=== PATIENT | female | born 1945 | race Caucasian/White ===

== ENCOUNTER → 2017-02-07 | Outpatient (CLI) | payer OTHER ==
[~2017-02-07] MED LIST: CALCTAB5 PO; CHOL200010 PO; METF500T PO; MULT-506 PO; SIME80CH PO
--- NOTE | 2017-02-08 07:57 | MAMMOGRAPHY REPORT ---
BILATERAL DIGITAL SCREENING MAMMOGRAM TOMOSYNTHESIS WITH CAD: 02/07/2017 CLINICAL HISTORY: Routine screening. Patient has no complaints. TECHNIQUE: Breast tomosynthesis in addition to standard 2D mammography was performed. Current study was also evaluated with a Computer Aided Detection (CAD) system. COMPARISON: Comparison is made to exams dated: 01/28/2016 mammogram, 12/23/2014 mammogram, 12/17/2013 ma mmogram, 12/14/2012 mammogram, 11/29/2011 mammogram, and 11/23/2010 mammogram - [facility]. BREAST COMPOSITION: The tissue of both breasts is heterogeneously dense, which may obscure small mas ses. FINDINGS: There is a stable metallic biopsy marker in the left upper outer quadrant. Round microcal cifications in the right lateral breast are stable. There are also 2 stable clusters of amorphous mi crocalcifications in the central right breast, unchanged dating back to at least 2010, therefore like ly benign. No new suspicious mass, architectural distortion or cluster of new, suspicious microcalci fications is seen bilaterally. IMPRESSION: ACR BI-RADS CATEGORY 1: NEGATIVE There is no mammographic evidence of malignancy. A 1 year screening mammogram is recommended. The pa tient will receive written notification of the results. Approximately 10% of breast cancers are not detected with mammography. A negative mammographic report should not delay biopsy if a clinically suggestive mass is present. Silke Hunt M.D. ay/:02/07/2017 16:51:10 [place] Erector Helper: Carly GREGORY(Steffi)(Delmi), [facility] letter sent: Normal 1/2 BI-RADS Code: ACR BI-RADS Category 1: Negative
== END | disposition home or self-care (01) ==
LOC: C.MAMM 13:22
PROVIDERS: ATTEND Family Medicine
DX: Z12.31 Encounter for screening mammogram for malignant neoplasm of breast (principal)

== ENCOUNTER → 2017-05-06 | Outpatient (CLI) | payer OTHER ==
[~2017-05-06] VITALS: Ht 172.7 cm; Wt 72.4 kg
[2017-05-06 13:17] VITALS: BP 110/74; PULSE 83; Ht 172.7 cm; Wt 72.4 kg
== END | disposition home or self-care (01) ==
LOC: C.NEUR 13:05
PROVIDERS: ATTEND Internal Medicine Pulmonary Disease
DX: G47.33 Obstructive sleep apnea (adult) (pediatric) (principal); J30.89 Other allergic rhinitis

== ENCOUNTER → 2017-09-13 | Outpatient (CLI) | payer OTHER ==
--- NOTE | 2017-09-13 12:35 | DIAGNOSTIC IMAGING REPORT ---
L RIBS UNILATERAL WITH PA CHEST CLINICAL HISTORY: Left-sided chest pain following injury. COMPARISON STUDY: No previous studies for comparison. FINDINGS: There is no pneumothorax or pleural effusion. Lungs are clear. Cardiac size is normal. Mediastinal contours are normal. No acute left rib fractures are identified. IMPRESSION: No pneumothorax. No acute left rib fractures identified. Electronically signed by: Cali Dennis M.D. 09/13/2017 12:34 PM Dictated Date/Time: 09/13/2017 12:32 PM
== END | disposition home or self-care (01) ==
LOC: C.RADBC 10:59
PROVIDERS: ATTEND Family Medicine
DX: R07.9 Chest pain, unspecified (principal)

== ENCOUNTER → 2018-02-13 | Outpatient (CLI) | payer OTHER ==
--- NOTE | 2018-02-14 15:20 | MAMMOGRAPHY REPORT ---
BILATERAL DIGITAL SCREENING MAMMOGRAM TOMOSYNTHESIS WITH CAD: 02/13/2018 CLINICAL HISTORY: Routine screening. Patient has no complaints. TECHNIQUE: Breast tomosynthesis in addition to standard 2D mammography was performed. Current study w as also evaluated with a Computer Aided Detection (CAD) system. COMPARISON: Comparison is made to exams dated: 02/07/2017 mammogram, 01/28/2016 mammogram, 07/16/2015 m ammogram, 01/01/2015 mammogram, 12/23/2014 mammogram, and 12/17/2013 mammogram - [facility]. BREAST COMPOSITION: The tissue of both breasts is heterogeneously dense, which may obscure small mass es. FINDINGS: There is an oval partially circumscribed and partially obscured 9 mm mass within the left lower inner quadrant, best seen on the tomosynthesis images, for which targeted ultrasound and possible addition al spot compression tomosynthesis views are recommended for further evaluation. The remainder of both breasts are stable compared to prior exams, without suspicious masses, calcific ations, or areas of architectural distortion noted. Bilateral benign-appearing calcifications are no t significantly changed. A biopsy clip is again noted within the left upper outer quadrant. IMPRESSION: ACR BI-RADS CATEGORY 0: INCOMPLETE EVALUATION: NEED ADDITIONAL IMAGING EVALUATION Left breast mass, for which additional imaging evaluation is recommended. The patient will be called to schedule an appointment. Some breast cancers are not detected with mammography. A negative mammographic report should not angeline y biopsy if a clinically suggestive mass is present. Melissa Solorzano M.D. ah/:02/13/2018 14:39:34 Riv[employer] Hole Machine Operator: RT Mikhail(Steffi)(M), [facility] letter sent: Addl Imaging 0 BI-RADS Code: ACR BI-RADS Category 0: Incomplete Evaluation: Need Additional Imaging Evaluation
== END | disposition home or self-care (01) ==
LOC: C.MAMM 13:57
PROVIDERS: ATTEND Family Medicine
DX: Z12.31 Encounter for screening mammogram for malignant neoplasm of breast (principal); N63.24 Unspecified lump in the left breast, lower inner quadrant

== ENCOUNTER 2023-04-28 08:51 | Observation (INO) ==
--- NOTE | 2023-04-26 09:36 | Anesthesiology Consultation ---
Date of Service April 26, 2023 Assessment & Plan (1) Encounter for pre-operative examination: Chart Review Chart Review: Acceptable Risk for Surgery (pending DOS EKG) and Patient NOT seen in Pre Admission Testing - Check EKG stat DOS (not done preoperatively) - Check BSG AM DOS -Infectious Disease screening: Per PAT nursing assessment on 04/26/23. No known infectious disease contacts in past 10 days or current infectious disease symptoms. No recent travel outside the country. History Surgery Operation Date: 04/28/23 10:30 Proposed Procedures p Endobronchial Ultrasound - Jaren Amaral MD Height/Weight Height: 5 ft 8 in Weight: 71.668 kg Allergies Allergy/AdvReac Type Severity Reaction Status Date / Time iodine Allergy Mild RASH Verified 04/26/23 08:52 pneumococcal vaccine Allergy Rash Verified 04/26/23 08:52 Dust Allergy Mild SINUS Uncoded 04/26/23 08:52 SYMPTOMS Medications Home Medications Medication Instructions Recorded Confirmed Last Taken metformin 500 mg tablet 500 mg PO TID 04/22/19 04/26/23 Unknown (Glucophage) multivitamin 1 tab PO QAM 04/22/19 04/26/23 Unknown turmeric 1 tab PO HS 07/28/21 04/26/23 Unknown cholecalciferol (vitamin D3) 125 125 mcg PO QAM 04/26/23 04/26/23 Unknown mcg (5,000 unit) tablet (Vitamin D3) simethicone 125 mg capsule 125 mg PO QAM 04/26/23 04/26/23 Unknown Past Medical History Medical History Chronic cough Ductal carcinoma in situ (DCIS) of left breast dx 04/2023 Hx of multiple concussions most recent ~2015, due to falls from horse; no residual effects from the concussions Slow to wake up after anesthesia Allergic rhinitis due to dust Type 2 diabetes mellitus Obstructive sleep apnea cpap Osteopenia Past Family History Family History Mother Bladder cancer Brother Lung cancer Son Asthma Past Surgical History Surgical History Hx of bilateral cataract extraction Hx of colonoscopy History of oral surgery History of hysterectomy removed 1 ovary History of dilatation and curettage Social History Smoking Status: Never smoker Do You Dip or Chew Tobacco: No Hx Alcohol Use: Yes Alcohol type: wine alcohol intake frequency: 0-2 drinks per day Hx Substance Use: No substance use type: does not use Lab Results Anesthesia Preop Results Results Anesthesia Widget: WBC 6.78 K/ul (4.8-10.8) 04/25/23 Hgb 12.8 g/dl (12.0-16.0) 04/25/23 Hct 38.3 % (37.0-47.0) 04/25/23 Plt 453 K/uL (130-400) H 04/25/23 Na 140 mmol/L (136-145) 04/25/23 K 3.9 mmol/L (3.5-5.1) 04/25/23 Cl 104 mmol/L (98-107) 04/25/23 CO2 29 mmol/L (21-32) 04/25/23 BUN 16 mg/dl (6-23) 04/25/23 Creat 0.90 mg/dl (0.6-1.2) 04/25/23 Glucose Level 94 mg/dl (70-99(Fasting)) 04/25/23 PT 10.3 Seconds (9.0-12.0) 04/25/23 INR 0.9 (0.9-1.1) 04/25/23 HA1c 5.9 % (4.5-5.6) H 03/31/23 Testing Chest X-Ray Date: 04/11/23 FINDINGS: Interval development of a 7.7 cm round masslike opacity within the left lower lobe posteriorly. No pneumothorax. No pleural effusions. Left basilar linear densities favor subsegmental atelectasis. The heart is normal in size. No evidence for pulmonary edema. No acute fractures identified. IMPRESSION: 1. Interval development of a 7.7 cm round masslike opacity within the left lower lobe. This is concerning for a malignancy. Follow-up dedicated chest CT is recommended for confirmation. Pulmonary Function Test Date: 04/25/23 Normal spirometry per interpretation Other Testing Chest CT 04/18/23= Left lower lung airspace opacity measures approximately 61 mm. Findings may represent infectious/inflammatory process however are concerning for a mass lesion with postobstructive atelectasis. Short-term follow-up or bronchoscopic biopsy can be performed. There is a 11 mm left hilar node, otherwise no suspicious lymphadenopathy or nodules are seen.
[~2023-04-28 08:51] MED LIST changes: -CALCTAB5 PO; -CHOL200010 PO; +LR 15ML/HR IV SCH; -METF500T PO; -MULT-506 PO; -SIME80CH PO
[2023-04-28] MEDS ORDERED: PROPOFOL IV EMULSION 10 MG/ML 20 ML VIAL IV ONE ×6 (09:07→12:38)
[2023-04-28] MEDS ORDERED: ROCURONIUM BROMIDE 10 MG/ML 5 ML VIAL IV ONE (09:07)
[2023-04-28] MEDS ORDERED: ONDANSETRON INJ 2 MG/ML 2 ML VIAL ONE (09:07)
[2023-04-28] MEDS ORDERED: LIDOCAINE 2% 2 ML VIAL/AMP(20MG/ML) INFIL ONE (09:07)
[2023-04-28] MEDS ORDERED: fentaNYL citrate PF 100 MCG/2 ML VIAL ONE ×2 (09:07→12:23)
--- NOTE | 2023-04-28 09:56 | History & Physical Bridge Note ---
Date of Service April 28, 2023 History & Physical Bridge Note I have examined the patient, reviewed the History & Physical and in the interval since the performance of the History & Physical I have noted the following changes of clinical significance: no changes noted
[2023-04-28] MEDS ORDERED: fentaNYL citrate PF 100 MCG/2 ML VIAL IV PRN (10:01)
[2023-04-28] MEDS ORDERED: ATROPINE SULFATE 0.1 MG/ML 10ML SYR IV PRN (10:01)
[2023-04-28] MEDS ORDERED: ePHEDrine sulfate 50 MG/ML AMP IV PRN (10:01)
[2023-04-28] MEDS ORDERED: ONDANSETRON INJ 2 MG/ML 2 ML VIAL IV PRN (10:01)
[2023-04-28] MEDS ORDERED: MIDAZOLAM HCL 1 MG/ML 2ML VIAL ONE (10:19)
[2023-04-28] MEDS ORDERED: SUGAMMADEX SODIUM 200 MG/2 ML VIAL IV ONE (10:56)
[2023-04-28] MEDS ORDERED: SUCCINYLCHOLINE CHLORIDE 20 MG/ML 10 ML VIAL IV ONE (11:27)
[2023-04-28] MEDS ORDERED: TRANEXAMIC ACID / 0.7% NACL 1000MG/100ML BAG IV ONE (11:27)
[2023-04-28] MEDS ORDERED: TXA 10% Non-IV Routes 100 MG/ML VIAL NEB ONE (12:37)
--- NOTE | 2023-04-28 13:08 | Electrocardiogram Report ---
Test Reason : Blood Pressure : / mmHG Vent. Rate : 077 BPM Atrial Rate : 077 BPM P-R Int : 160 ms QRS Dur : 128 ms QT Int : 416 ms P-R-T Axes : 056 -48 001 degrees QTc Int : 470 ms Normal sinus rhythm Right bundle branch block Left anterior fascicular block Bifascicular block Voltage criteria for left ventricular hypertrophy Abnormal ECG When compared with ECG of 08-OCT-2004 08:06, Premature supraventricular complexes are no longer Present Right bundle branch block has replaced Incomplete right bundle branch block Confirmed by Pascual Payan ([id number]) on 04/28/2023 1:08:42 PM Referred By: Jaren Amaral Confirmed By:Pascual Payan
--- NOTE | 2023-04-28 13:23 | Procedure Note ---
Procedure Note: Bronchoscopy Procedure PREOPERATIVE DIAGNOSIS: Left lower lobe mass POSTOPERATIVE DIAGNOSIS: Left lower lobe mass PROCEDURE PERFORMED: Flexible fiberoptic bronchoscopy with bronchial washings of the left lower lobe, transbronchial biopsies of the left lower lobe, cytology brushings, blood clot clot retrieval and cryoprobe. COMPLICATIONS: None. INDICATION: Evaluate left lower lobe lung mass PROCEDURE: Informed consent was obtained from the patient prior to the procedure. All questions were answered to the best of my ability. The patient was intubated by the general anesthesia staff and sedation, hemodynamics and ventilation status is monitored by anesthesia staff throughout the procedure. Timeout was performed directly prior to the procedure. A diagnostic bronchoscope was introduced via an endotracheal tube adapter through the endotracheal tube. The trachea and julieta appeared normal. Julieta was sharp. I performed an inspection of the bilateral tracheobronchial tree. No obvious mass lesions or significant secretions were encountered. We then wedged in the superior segment of the left lower lobe and performed washings of this region with 120 mL of saline. Approximately 30 mL was aspirated back. I then performed cytologic brushings of the left lower lobe region with the use of fluoroscopy to guide our brush. Minimal bleeding was encountered after the brushes were deployed. I then performed 2 transbronchial biopsies of the superior segment of the left lower lobe with the guidance of fluoroscopy. After the second biopsy, significant bleeding was encountered. Cold saline was instilled into the superior segment of the left lower lobe along with 1 mL of diluted epinephrine to control the bleeding. Visualization of the airway was maintained with the bronchoscope throughout the procedure, but it was difficult to identify the individual segments at this time due to the significan t amount of bleeding encountered. I used fluoroscopy to help guide the bronchoscope back into the left lower lobe region. Copious amounts of cold saline was used to further control bleeding. Eventually hemostasis was achieved and there was a large clot burden noted emanating from the superior segment of the left lower lobe. Clot was then seen extending from this region of the left mainstem bronchus, over the julieta and into the right lower lobe and right upper lobe region. At this point, I asked for assistance from my colleague, Dr. Kelly who was kindly available to assist in this case. A cryo probe was utilized to remove the clot sequentially from the right lower lobe, julieta and left lower lobe. An alligator forcep was also utilized for clot retrieval. The airways were then flushed clean with saline and fluid along with retained blood clots were aspirated back. Inspection bronchoscopy was performed after retrieval and minimal clot was seen. The bronchial did appear inflamed post procedure. Ultimately, the patient was successfully extubated and postprocedure chest x-ray demonstrated vascular congestion without evidence of pneumothorax. CBC was obtained during the procedure due to the bleeding encountered and the results suggested a mild drop in hemoglobin to 11.1 from a CBC checked on 04/25/2023 when her hemoglobin was 12.8. As noted above, the patient remains hemodynamically stable. Impression: - Left lower lobe mass biopsied with forceps and brushings. Washings performed of the left lower lobe as well and sent for cytologic examination. - Bleeding encountered during the procedure with eventual hemostasis achieved. Approximately 75 mL of blood loss was seen. Numerous tools were deployed via the bronchoscopy for blood clot retrieval after hemostasis was achieved including alligator forceps, cryoprobe and a basket. We were able to retrieve the vast majority of clot burden from the airways. -Patient is currently in the PACU recovery area with adequate hemodynamics and oxygenation. [facility] [place] Procedure Codes (Charges) Pulmonary/Thoracic Procedure 1: Pulmonary and Thoracic: 63997 Dx bronchoscopy/brush Procedure 2: Pulmonary and Thoracic: 79770 Bronchoscopy w/ transbronchial lung bx Procedure 3: Pulmonary and Thoracic: 08656 Dx bronchoscopy/wash Procedure 4: Pulmonary and Thoracic: 28626 Bronchoscopy, clear airways
--- NOTE | 2023-04-28 13:46 | XRay Report ---
XR chest 1V portable CLINICAL HISTORY: s/p bronch with bx LLL TECHNIQUE: Single frontal radiograph of the chest was obtained. Comparison: Comparison is made to chest radiograph 04/08/2023 FINDINGS: No lines and tubes are seen. The cardiomediastinal silhouette is normal. Ill-defined retrocardiac opa city is in the left lower lung. Pulmonary vascular prominence is suggested. No evidence of pleural ef fusion or pneumothorax. IMPRESSION: 1. Expected postbiopsy appearance without evidence of pneumothorax. 2. There is questionable pulmonary vascular congestion. ACT 112: Negative or not required by law. Electronically signed by: Kimani Laughlin M.D. 04/28/2023 1:45 PM
[2023-04-28 13:56] LABS: Basophils # (auto) 0.03 K/uL (0.00-0.20); Basophils % (auto) 0.7 %; Eosinophils # (auto) 0.12 K/uL (0.00-0.50); Eosinophils % (auto) 2.9 %; Hematocrit (blood only) 30.5 % (37.0-47.0); Hemoglobin 11.1 g/dl (12.0-16.0); Immature Granulocytes # (auto) 0.01 K/uL (0.01-0.20); Immature Granulocytes % (auto) 0.2 %; Lymphocytes # (auto) 1.41 K/uL (1.20-3.40); Lymphocytes % (auto) 34.3 %; Mean Corpuscular Hemoglobin 32.4 pg (25.0-34.0); Mean Corpuscular Hgb Conc 36.4 g/dL (32.0-36.0); Mean Corpuscular Volume 88.9 fL (80.0-100.0); Mean Platelet Volume 10.3 fL (9.4-12.4); Monocytes # (auto) 0.36 K/uL (0.11-0.59); Monocytes % (auto) 8.8 %; Neutrophils # (auto) 2.18 K/uL (1.40-6.50); Neutrophils % (auto) 53.1 %; Platelet Count 296 K/uL (130-400); RDW Coefficient of Variation 13.4 % (11.5-14.5); RDW Standard Deviation 43.8 fL (36.4-46.3); Red Blood Count 3.43 M/uL (4.20-5.40); White Blood Count 4.11 K/ul (4.8-10.8)
[2023-04-28] MEDS ORDERED: ALBUTEROL 0.083% NEBU SOLN 3 ML VIAL NEB STA (14:32)
[2023-04-28] MEDS ORDERED: ALBUTEROL 0.083% NEBU SOLN 3 ML VIAL ONE (14:35)
[2023-04-28 14:40] LABS: Lymphocyte Body Fluid Man 4 %; Neutrophil Body Fluid Man 71 %
[2023-04-28 14:47] LABS: Fluid Mono/Macrophage 25 %
[2023-04-28 14:48] LABS: Basophils # (auto) 0.03 K/uL (0.00-0.20); Basophils % (auto) 0.3 %; Eosinophils # (auto) 0.07 K/uL (0.00-0.50); Eosinophils % (auto) 0.7 %; Hemoglobin 11.8 g/dl (12.0-16.0); Immature Granulocytes # (auto) 0.02 K/uL (0.01-0.20); Immature Granulocytes % (auto) 0.2 %; Lymphocytes % (auto) 14.1 %; Mean Corpuscular Hgb Conc 34.7 g/dL (32.0-36.0); Mean Corpuscular Volume 86.5 fL (80.0-100.0); Mean Platelet Volume 8.9 fL (9.4-12.4); Monocytes # (auto) 0.34 K/uL (0.11-0.59); Monocytes % (auto) 3.4 %; Neutrophils # (auto) 8.09 K/uL (1.40-6.50); Neutrophils % (auto) 81.3 %; Platelet Count 358 K/uL (130-400); RDW Coefficient of Variation 13.4 % (11.5-14.5); RDW Standard Deviation 42.4 fL (36.4-46.3); Red Blood Count 3.93 M/uL (4.20-5.40); White Blood Count 9.95 K/ul (4.8-10.8)
--- NOTE | 2023-04-28 15:36 | XRay Report ---
XR chest 1V portable HISTORY: 77 years-old Female hypoxia, persistent cough post bronch acute hypoxia COMPARISON: Chest radiograph of same date 1:31 PM, chest CT 04/18/2023 TECHNIQUE: AP view the chest FINDINGS: Retrocardiac masslike area of consolidation redemonstrated. Mild pulmonary vascular congestion. No pn eumothorax, pleural effusion or overt pulmonary edema. Degenerative changes of the shoulders and spin e. IMPRESSION: 1. Cardiomegaly with pulmonary vascular congestion. 2. No postprocedural pneumothorax identified. 3. Retrocardiac masslike area of consolidation redemonstrated, better seen on the comparison chest CT . ACT 112: Negative or not required by law. The above report was generated using voice recognition software. It may contain grammatical, syntax o r spelling errors. Electronically signed by: Rohith Benitez M.D. 04/28/2023 3:35 PM
--- NOTE | 2023-04-28 15:55 | Communication Note ---
Date of Service: April 28, 2023 I reevaluated the patient and looked at her repeat chest x-ray and CBC. Her hemoglobin is stable. Her chest x-ray reveals vascular congestion with no p ostprocedural pneumothorax identified. The patient is having frequent bouts of dry cough and frequent desaturations to the low 80s on room air. She is able to quickly improve her oxygenation to the mid to high 90s with deep inspiration, but has a persistent cough. We will ask that she be admitted to the hospitalist service for monitoring overnight. Please place the patient on supplemental humidified oxygen. We will start IV Solu-Medrol 60 mg twice daily and albuterol nebs every 6 hours for airway inflammation. We will also start the patient on Unasyn. Cough is likely secondary to bronchoscopy and possible retained clot in the bronchial airways. Majority of the clot in her airways was removed procedurally, but potentially there is remaining clot in the distal airways.
--- NOTE | 2023-04-28 16:19 | Anesthesiology Progress Note ---
Date of Service April 28, 2023 Anesthesia Post Procedure Vital Signs Vital Signs: Temp Pulse Pulse Resp BP Pulse Ox O2 Del Method 04/28/23 15:30 76 16 109/63 92 Room Air 04/28/23 15:00 80 20 121/56 L 94 Room Air 04/28/23 14:45 70 22 117/67 100 Nebulizer 04/28/23 14:30 68 16 115/61 97 Room Air 04/28/23 14:15 68 12 119/53 L 98 Room Air 04/28/23 14:05 72 12 112/80 98 Room Air 04/28/23 13:55 36.3 C L 88 18 136/97 94 Room Air 04/28/23 13:45 64 18 113/67 94 Oxymask 04/28/23 13:35 80 18 118/69 98 Oxymask 04/28/23 13:26 Oxymask 04/28/23 13:25 66 19 124/67 99 Oxymask 04/28/23 13:15 36 C L 63 19 120/73 98 Oxymask 04/28/23 09:16 36.9 C 81 20 145/92 H 96 Room Air O2 Flow Rate 04/28/23 15:30 04/28/23 15:00 04/28/23 14:45 10 04/28/23 14:30 04/28/23 14:15 04/28/23 14:05 04/28/23 13:55 04/28/23 13:45 2 04/28/23 13:35 4 04/28/23 13:26 04/28/23 13:25 6 04/28/23 13:15 6 04/28/23 09:16 Transfer of Care Handoff Completed per policy Notes Mental Status: alert / awake / arousable and participated in evaluation Patient Amnestic to Procedure: Yes Nausea / Vomiting: adequately controlled Pain: adequately controlled Airway Patency, RR, SpO2: stable & adequate BP & HR: stable & adequate Hydration State: stable & adequate Anesthetic Complications: no major complications apparent and Pt Satisfied with anesthetic care
--- NOTE | 2023-04-28 16:46 | History & Physical Report ---
Date of Service April 28, 2023 Assessment & Plan (1) Lung mass: Plan: Left lower lobe lung mass s/p bronchoscopy and biopsy complicated by hemorrhage Approximately 75 cc of blood loss multiple tools required for clot retrieval and hemostasis. No hypoxia, normotensive, regular heart rate while in PACU at time of admission evaluation Admitted to PCU Solu-Medrol twice daily 60 mg, guaifenesin with codeine, DuoNebs continued Biopsy results pending and will require outpatient follow-up Pulmonology consulted H&H every 8 hours, morning labs ordered Hemodynamically stable at time of reassessment Do not use pharmacologic DVT prophylaxis at this (2) Status post bronchoscopy: (3) Obstructive sleep apnea: Plan: Do not use CPAP tonight due to hemorrhage/clot. (4) Type 2 diabetes mellitus: Plan: Type II DM Basal bolus SSI ordered, pharmacy glycemic consult for DM with steroid use Minimal insulin requirements, A1c less than 6% on metformin monotherapy at home Goal BSG 1 [id number] Plan DVT prophylaxis: SCDs Disposition: PCU CODE STATUS: Full code Diet: Clear, n.p.o. at midnight per pulm History of Present Illness Primary Care Provider: Dora Andrade Roxana is a 77-year-old female with a past medical history of type 2 diabetes mellitus, MARIA R, DCIS of the left breast and a 6.5 cm lung mass noted on CT who presented for bronchoscopy and biopsy. She had significant postprocedural bleeding and clot following biopsy has been recommended for admission and overnight monitoring for stability. Hemoglobin rechecked x3 initially downtrended by a point and now uptrending. SPO2 generally greater than 90% at room air with intermittent desats to the 80s before spontaneously improving. Case reviewed with pulmonology who are consulted, patient is recommended for methylprednisolone 60 mg twice daily, nebulizers, and antitussive overnight. Hemoglobin has been trended every 8 hours. Patient has history of well- controlled diabetes on metformin monotherapy, due to concurrent steroid use we will add additional sliding scale Roxana is seen at the bedside in the PACU. She reports she actually feels well and for the first time in 2 hours she is not coughing. She does not feel short of breath, but notes that she tries to take a deep breath will suddenly have a spurt of coughing. Denies chest pain, chest pressure denies fever, chills, sweats. Denies lightheadedness/dizziness. She is concerned about being on steroids due to her diabetes, but notes her diabetes is generally extremely well controlled with an A1c of less than 6%. She reports prior to the work-up for the masses in her breast cancer she was completely healthy, very active, exercises routinely and had no medical problems. No blood thinners. 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 Medical History: Reviewed Medications: Reviewed Surgical History: Reviewed Family history: Reviewed Allergies: Reviewed Social History: No tobacco/etoh Code Status: Full Allergies Allergy/AdvReac Type Severity Reaction Status Date / Time house dust Allergy Mild sinus Verified 04/28/23 14:35 symptoms iodine Allergy Mild RASH Verified 04/26/23 14:17 pneumococcal vaccine Allergy Rash Verified 04/26/23 14:17 Home Medications Medication Instructions Recorded Confirmed Type metformin 500 mg tablet 500 mg PO TID 04/22/19 04/28/23 History (Glucophage) multivitamin 1 tab PO QAM 04/22/19 04/28/23 History turmeric 1 tab PO HS 07/28/21 04/28/23 History cholecalciferol (vitamin D3) 125 125 mcg PO QAM 04/26/23 04/28/23 History mcg (5,000 unit) tablet (Vitamin D3) prednisone 20 mg tablet 40 mg (2 x 20 mg) PO DAILY 5 days 04/28/23 Rx #10 tabs Past Med/Surg History Medical History (Updated 04/28/23 @ 17:27 by Jc Burroughs MD) Chronic cough Ductal carcinoma in situ (DCIS) of left breast dx 04/2023 Hx of multiple concussions most recent ~2015, due to falls from horse; no residual effects from the concussions Slow to wake up after anesthesia Allergic rhinitis due to dust Type 2 diabetes mellitus Obstructive sleep apnea cpap Osteopenia Surgical History (Updated 04/28/23 @ 17:27 by Jc Burroughs MD) Hx of bilateral cataract extraction Hx of colonoscopy History of oral surgery History of hysterectomy removed 1 ovary History of dilatation and curettage Family History Mother Bladder cancer Brother Lung cancer Son Asthma Social History Smoking Status: Never smoker Second Hand Exposure: Yes (hx); Do You Dip or Chew Tobacco: No; Tobacco Cessation Education Requested by Patient: No Hx Alcohol Use: Yes Alcohol type: wine Hx Substance Use: No Preferred Language: Portuguese Communication Ability: Effective Chronometer Assembler And Adjuster Required: No Beliefs That Will Affect Care: None marital status: / Current Living Situation: Alone Current Living Situation Comment: lives at [facility] Other Information That Helps Us Care for You: No Feels Safe at Home: Yes Safety Concerns: Feels Safe At This Time Assistive Devices: CPAP, Glasses and Hearing Aid - Bilateral Assistive Devices Comment: glasses prn Physical Exam Physical Exam: General: A&Ox3. NAD. Cooperative. HEENT: Atraumatic, normocephalic. Pulm: CTAB A&P. -wheezes, -rales, -rhonchi. Deep inspiration limited by induction of cough. Symmetrical chest rise. No increased work of breathing. No respiratory distress. Cardiac: RRR, -mrg. Radial pulses intact and symmetrical. Abdominal: Nontender, nondistended, soft. BS present. Results & Data Results & Data Vital Signs (Past 12 Hours) Vital Signs Temp Pulse Pulse Resp BP Pulse Ox O2 Del Method 04/28/23 15:30 76 16 109/63 92 Room Air 04/28/23 15:00 80 20 121/56 L 94 Room Air 04/28/23 14:45 70 22 117/67 100 Nebulizer 04/28/23 14:30 68 16 115/61 97 Room Air 04/28/23 14:15 68 12 119/53 L 98 Room Air 04/28/23 14:05 72 12 112/80 98 Room Air 04/28/23 13:55 36.3 C L 88 18 136/97 94 Room Air 04/28/23 13:45 64 18 113/67 94 Oxymask 04/28/23 13:35 80 18 118/69 98 Oxymask 04/28/23 13:26 Oxymask 04/28/23 13:25 66 19 124/67 99 Oxymask 04/28/23 13:15 36 C L 63 19 120/73 98 Oxymask 04/28/23 09:16 36.9 C 81 20 145/92 H 96 Room Air O2 Flow Rate 04/28/23 15:30 04/28/23 15:00 04/28/23 14:45 10 04/28/23 14:30 04/28/23 14:15 04/28/23 14:05 04/28/23 13:55 04/28/23 13:45 2 04/28/23 13:35 4 04/28/23 13:26 04/28/23 13:25 6 04/28/23 13:15 6 04/28/23 09:16 Code Status & VTE Plan VTE Prophylaxis Plan VTE Prophylaxis will be ordered: Yes PG Care Time/CCT Total # of Minutes Spent Total Time Spent with Patient: Total time spent is greater than 50% in coordination of care (as documented) at patient's floor/unit and/or counseling patient: Coding Level of Care Code 19577 INT INP/OBS CARE 3/75MIN Diagnoses Lung mass R91.8 Status post bronchoscopy Z98.890 Obstructive sleep apnea G47.33 Type 2 diabetes mellitus E11.9
[2023-04-28] MEDS ORDERED: ALBUT/IPRATROP 3MG/0.5MG NEB 3 ML VIAL NEB PRN (17:07)
[2023-04-28] MEDS: ALBUTEROL 0.083% NEBU SOLN 3 ML VIAL NEB SCH (19:54)
[2023-04-28] MEDS ORDERED: GLUCOSE 10 TAB/TUBE PO PRN (20:22)
[2023-04-28] MEDS ORDERED: DEXTROSE 50% 50 ML SYRINGE IV PRN (20:22)
[2023-04-28] MEDS ORDERED: CARBOHYDRATES FOR HYPOGLYCEMIA PO PRN (20:22)
[2023-04-28] MEDS ORDERED: GLUCOSE 40% GEL 15 GM TUBE PO PRN (20:22)
[2023-04-28] MEDS ORDERED: GLUCAGON FOR INJ 1 MG VIAL SQ PRN (20:22)
[2023-04-28] MEDS ORDERED: NON-FORMULARY MEDICATION (Turmeric 1 TAB) PO SCH (21:00)
[2023-04-28] MEDS: methylPREDNISolone 60 MG in SYRINGE 0 ML IV SCH (21:10)
[2023-04-28] MEDS: INSULIN ASPART PER UNIT CHARGE SC SCH (21:10)
[2023-04-29] MEDS: ALBUTEROL 0.083% NEBU SOLN 3 ML VIAL NEB SCH ×4 (00:14→07:29)
[2023-04-29 00:50] LABS: Hematocrit (blood only) 34.8 % (37.0-47.0); Hemoglobin 11.6 g/dl (12.0-16.0)
[2023-04-29 06:35] LABS: Basophils # (auto) 0.01 K/uL (0.00-0.20); Basophils % (auto) 0.1 %; Hematocrit (blood only) 32.9 % (37.0-47.0); Hemoglobin 11.1 g/dl (12.0-16.0); Immature Granulocytes # (auto) 0.04 K/uL (0.01-0.20); Immature Granulocytes % (auto) 0.3 %; Lymphocytes # (auto) 1.02 K/uL (1.20-3.40); Lymphocytes % (auto) 8.6 %; Mean Corpuscular Hemoglobin 29.8 pg (25.0-34.0); Mean Corpuscular Hgb Conc 33.7 g/dL (32.0-36.0); Mean Corpuscular Volume 88.4 fL (80.0-100.0); Mean Platelet Volume 9.2 fL (9.4-12.4); Monocytes # (auto) 0.48 K/uL (0.11-0.59); Monocytes % (auto) 4.1 %; Neutrophils # (auto) 10.25 K/uL (1.40-6.50); Neutrophils % (auto) 86.9 %; Platelet Count 360 K/uL (130-400); RDW Coefficient of Variation 13.7 % (11.5-14.5); RDW Standard Deviation 44.4 fL (36.4-46.3); Red Blood Count 3.72 M/uL (4.20-5.40)
[2023-04-29 06:37] LABS: BUN Creatinine Ratio 18.2 (10-20); Calcium 9.1 mg/dl (8.6-10.3); Creatinine Clr Calc Pharmacy 86.4 ml/min; Est GFR (African American) 104.9 ml/min; Est GFR (Non-African American) 90.5 ml/min; Potassium 4.2 mmol/L (3.5-5.1)
--- NOTE | 2023-04-29 07:41 | Hospitalist Progress Note ---
Date of Service April 29, 2023 Assessment & Plan (1) Lung mass: Plan: Left lower lobe lung mass s/p bronchoscopy and biopsy complicated by hemorrhage 04/28/23 post procedure developed hypoxia and unremitting cough clots retrieved in bronchoscopy Solu-Medrol twice daily 60 mg, guaifenesin with codeine, DuoNebs continued -hgb will be stable Do not use pharmacologic DVT prophylaxis at this (2) Obstructive sleep apnea: Plan: Do not use CPAP tonight due to hemorrhage/clot. (3) Type 2 diabetes mellitus: Plan: Type II DM Basal bolus SSI ordered, pharmacy glycemic consult for DM with steroid use Minimal insulin requirements, A1c less than 6% on metformin monotherapy at home Goal BSG 1 [id number] Plan DVT prophylaxis: SCDs CODE STATUS: Full code Diet: Clear, n.p.o. at midnight per pulm Admission and Anticipated Discharge Date Admission Date: April 28, 2023 Results & Data Results & Data Vital Signs (Past 12 Hours) Vital Signs Temp Pulse Pulse Resp BP Pulse Ox O2 Del Method 04/29/23 07:32 87 04/29/23 07:29 79 18 98 Nasal Cannula 04/29/23 07:19 98.8 F 70 18 109/65 97 Nasal Cannula 04/29/23 00:27 91 H 18 96 Nasal Cannula 04/28/23 22:00 94 H 04/28/23 21:42 97.7 F 94 H 16 110/60 95 Nasal Cannula 04/28/23 19:54 104 H 18 96 Nasal Cannula O2 Flow Rate 04/29/23 07:32 04/29/23 07:29 2 04/29/23 07:19 1.5 04/29/23 00:27 2 04/28/23 22:00 04/28/23 21:42 2 04/28/23 19:54 2 PG Care Time/CCT Total # of Minutes Spent Total Time Spent with Patient: Total time spent is greater than 50% in coordination of care (as documented) at patient's floor/unit and/or counseling patient: Coding Diagnoses Lung mass R91.8 Obstructive sleep apnea G47.33 Type 2 diabetes mellitus E11.9
--- NOTE | 2023-04-29 08:35 | XRay Report ---
XR chest 2V PA/lateral HISTORY: 77 years-old Female post bronch acute shortness of breath COMPARISON: 04/28/2023, 04/18/2023 TECHNIQUE: PA and lateral views of the chest FINDINGS: Cardiac silhouette is enlarged. Improved pulmonary vascular congestion. No pneumothorax. Mild linear left basilar atelectasis. Persistent masslike area of consolidation within the left lower lobe. No pl eural effusion. Degenerative changes of the shoulders and spine. IMPRESSION: Persistent masslike area of consolidation within the left lower lobe. ACT 112: Negative or not required by law. The above report was generated using voice recognition software. It may contain grammatical, syntax o r spelling errors. Electronically signed by: Rohith Benitez M.D. 04/29/2023 8:34 AM
[2023-04-29] MEDS ORDERED: MULTIVITAMIN TAB PO SCH (09:00)
[2023-04-29] MEDS ORDERED: CHOLECALCIFEROL 5,000 UNITS 125 MCG TAB PO SCH (09:00)
[2023-04-29] MEDS: INSULIN ASPART PER UNIT CHARGE SC SCH (09:11)
[2023-04-29] MEDS: methylPREDNISolone 60 MG in SYRINGE 0 ML IV SCH (09:14)
--- NOTE | 2023-04-29 09:31 | Pulmonary Consultation ---
Date of Consultation April 29, 2023 Assessment & Plan (1) Lung mass: (2) Status post bronchoscopy: (3) Obstructive sleep apnea: Plan She has done very well post bronchoscopy and is stable for discharge at this time. I communicated this with the patient and the hospitalist service. She is okay to restart her CPAP today. She was encouraged to go to the ER should she develop any severe shortness of breath, hemoptysis, chest pain or high-grade fever. Chest x-ray today does not reveal any evidence of pneumothorax. Inflammatory changes appear improved. Continue with an additional 4 days of prednisone at a dose of 40 mg daily. Patient will not require supplemental oxygen on discharge. My office will contact her with the biopsy results once available. We discussed the next steps will depend on her biopsy results from the left lower lobe. Unfortunately, I did reiterate to her that we were only able to obtain 2 transbronchial biopsies due to the bleeding encountered during bronchoscopy. She is aware that she may need to undergo a CT-guided biopsy if these results are unrevealing. 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 I performed a bronchoscopy and during the procedure we encountered significant bleeding with clot formation. Ultimately, she was successfully extubated after the procedure and was admitted for observation overnight. Her oxygen saturations have improved significantly. Her cough is also improved. She denies any hemoptysis or chest pain. She has been able to ambulate this morning without any desaturations on room air. She was tolerating a diet and very eager to go home. She does cough occasionally upon deep inspiration. Her hemoglobin has remained stable. Allergies Allergy/AdvReac Type Severity Reaction Status Date / Time house dust Allergy Mild sinus Verified 04/28/23 14:35 symptoms iodine Allergy Mild RASH Verified 04/26/23 14:17 pneumococcal vaccine Allergy Rash Verified 04/26/23 14:17 Home Medications Medication Instructions Recorded Confirmed Type metformin 500 mg tablet 500 mg PO TID 04/22/19 04/28/23 History (Glucophage) multivitamin 1 tab PO QAM 04/22/19 04/28/23 History turmeric 1 tab PO HS 07/28/21 04/28/23 History cholecalciferol (vitamin D3) 125 125 mcg PO QAM 04/26/23 04/28/23 History mcg (5,000 unit) tablet (Vitamin D3) prednisone 20 mg tablet 40 mg (2 x 20 mg) PO DAILY 5 days 04/28/23 Rx #10 tabs Patient History Medical History (Updated 04/28/23 @ 17:27 by Jc Burroughs MD) Chronic cough Ductal carcinoma in situ (DCIS) of left breast dx 04/2023 Hx of multiple concussions most recent ~2015, due to falls from horse; no residual effects from the concussions Slow to wake up after anesthesia Allergic rhinitis due to dust Type 2 diabetes mellitus Obstructive sleep apnea cpap Osteopenia Surgical History (Updated 04/28/23 @ 17:27 by Jc Burroughs MD) Hx of bilateral cataract extraction Hx of colonoscopy History of oral surgery History of hysterectomy removed 1 ovary History of dilatation and curettage Family History Mother Bladder cancer Brother Lung cancer Son Asthma Social History Smoking Status: Never smoker Second Hand Exposure: Yes (hx); Do You Dip or Chew Tobacco: No; Tobacco Cessation Education Requested by Patient: No Hx Alcohol Use: Yes Alcohol type: wine Hx Substance Use: No Preferred Language: Yi Communication Ability: Effective Denture Finisher Required: No Beliefs That Will Affect Care: None marital status: / Current Living Situation: Alone Current Living Situation Comment: lives at [facility] Other Information That Helps Us Care for You: No Feels Safe at Home: Yes Safety Concerns: Feels Safe At This Time Assistive Devices: CPAP, Glasses and Hearing Aid - Bilateral Assistive Devices Comment: glasses prn Review of Systems Review of Systems: All systems reviewed & are unremarkable except as noted in HPI & below Physical Exam Physical Exam: VITAL SIGNS - Vital signs and nursing notes were reviewed. GENERAL - 77-year-old female appearing her stated age who is in no acute distress. Communicates well with provider and answers questions appropriately. SKIN - Without rashes or lesions. NOSE - Midline and without cyanosis. MOUTH/OROPHARYNX - Without perioral cyanosis. NECK - Neck with FROM. Supple to palpation. LUNGS - Chest wall evaluation demonstrates normal chest wall A:P diameter. Auscultation reveals diminished breath sounds at the LEFT sided lung base. No wheezes, rales, or rhonchi appreciated. CARDIAC - RRR with S1/S2. No murmur, rubs, or gallops appreciated. EXTREMITIES - Nail clubbing not present. No peripheral cyanosis. No pretibial edema present. +3/5 radial palpated throughout. PSYCH - A&Ox3 and cooperates fully with examiner. Pt is very pleasant and interacts well with examiner. Results & Data Results & Data Vital Signs (Past 12 Hours) Vital Signs Temp Pulse Pulse Resp BP Pulse Ox O2 Del Method 04/29/23 07:32 87 04/29/23 07:29 79 18 98 Nasal Cannula 04/29/23 07:19 37.1 C 70 18 109/65 97 Nasal Cannula 04/29/23 00:27 91 H 18 96 Nasal Cannula 04/28/23 22:00 94 H 04/28/23 21:42 36.5 C 94 H 16 110/60 95 Nasal Cannula O2 Flow Rate 04/29/23 07:32 04/29/23 07:29 2 04/29/23 07:19 1.5 04/29/23 00:27 2 04/28/23 22:00 04/28/23 21:42 2 PG Care Time/CCT Total # of Minutes Spent Total Time Spent with Patient: Total time spent is greater than 50% in coordination of care (as documented) at patient's floor/unit and/or counseling patient: Coding Level of Care Code 38417 INT INP/OBS CARE 2/55MIN Diagnoses Lung mass R91.8 Status post bronchoscopy Z98.890 Obstructive sleep apnea G47.33
--- NOTE | 2023-04-29 18:36 | Discharge Summary ---
Date of Service April 29, 2023 Admission HPI Per Admitting Provider Roxana is a 77-year-old female with a past medical history of type 2 diabetes mellitus, MARIA R, DCIS of the left breast and a 6.5 cm lung mass noted on CT who presented for bronchoscopy and biopsy. She had significant postprocedural bleeding and clot following biopsy has been recommended for admission and overnight monitoring for stability. Hemoglobin rechecked x3 initially downtrended by a point and now uptrending. SPO2 generally greater than 90% at room air with intermittent desats to the 80s before spontaneously improving. Case reviewed with pulmonology who are consulted, patient is recommended for methylprednisolone 60 mg twice daily, nebulizers, and antitussive overnight. Hemoglobin has been trended every 8 hours. Patient has history of well- controlled diabetes on metformin monotherapy, due to concurrent steroid use we will add additional sliding scale Roxana is seen at the bedside in the PACU. She reports she actually feels well and for the first time in 2 hours she is not coughing. She does not feel short of breath, but notes that she tries to take a deep breath will suddenly have a spurt of coughing. Denies chest pain, chest pressure denies fever, chills, sweats. Denies lightheadedness/dizziness. She is concerned about being on steroids due to her diabetes, but notes her diabetes is generally extremely well controlled with an A1c of less than 6%. She reports prior to the work-up for the masses in her breast cancer she was completely healthy, very active, exercises routinely and had no medical problems. No blood thinners. No asa/plavix group captain Medical History: Reviewed Medications: Reviewed Surgical History: Reviewed Family history: Reviewed Allergies: Reviewed Social History: No tobacco/etoh Code Status: Full Principal Diagnosis hypoxia post procedure left lower lung mass s/p bronchoscopy and biospy post biopsy bleeding Discharge Exam awake alert and pleasant. Nonproductive cough. She said no hemoptysis since has been in the unit. Card exam is regular lung exam shows changes to the left lower lobe with some rhonchorous breath sounds but definitely has breath sounds in all lung diaz Discharge Data Allergies Allergy/AdvReac Type Severity Reaction Status Date / Time house dust Allergy Mild sinus Verified 04/28/23 14:35 symptoms iodine Allergy Mild RASH Verified 04/26/23 14:17 pneumococcal vaccine Allergy Rash Verified 04/26/23 14:17 Procedures Performed Operation Date: 04/28/23 10:30 Actual Procedures p Bronchoscopy with Bronchoalveolar lavage, Bronchial brushings, Biopsy, Endobronchial cryoprobe with Transbronchial biopsy, transbronchial needle aspiration, retrieval of blood clot(Not Applicable) - Jaren Amaral MD Ordered Studies 04/28/23 [place] bronchoscopy Routine Hospital Course (1) Lung mass: Left lower lobe lung mass s/p bronchoscopy and biopsy complicated by hemorrhage 04/28/23 post procedure developed hypoxia and unremitting cough, hypoxia has resolved cough persists and nonproductive clots retrieved in bronchoscopy Solu-Medrol twice daily 60 mg, discharged on oral prednisone therapy.guaifenesin with codeine, And Tessalon Perles -hgb has been stable Did not use pharmacologic DVT prophylaxis at this (2) Obstructive sleep apnea: Do not use CPAP tonight due to hemorrhage/clot. (3) Type 2 diabetes mellitus: Type II DM patient will resume to home management which includes metformin and carbohydrate conservative diet Plan CODE STATUS: Full code tolerated diet before discharge Total Time Total Time Spent Total Time Spent (In Minutes): it required greater than 30 minutes to prepare this patient for discharge Discharge Plan Discharge Items Patient Disposition: Home - Self-Care Reason For Visit: SEVERE COUGH AND HYPOXIA Discharge Diagnosis: Mass of left lower lobe Activity: Per Instructions section Lifting: Gradually increase as tolerated Sexual Activity: When tolerated Exercise/Sports: Rest today Non-emergency contact: Primary Care Provider and Engine Turner Call non-emergency contact if: your symptoms worsen, your pain is unusual for you and your temperature is above 101 Follow-up/Referrals: Dora Andrade [Primary Care Provider] - Diet: Regular Addtl Attending Provider Instructions: I performed a biopsy of the left lower lobe masslike region 04/28/23 As discussed, we did encounter bleeding during your procedure and we were adequately able to control that bleeding during the procedure. You may notice some scant amount of blood when you cough over the next 2 to 3 days. If this becomes more pronounced and severe, please go to the ER immediately. I am going to prescribe you prednisone for 5 days in order to help reduce the inflammation in your lungs post biopsy. Additionally, if you start developing chest pain, shortness of or high-grade fever above 101, please go to the ER. We should hopefully have the results of the biopsy in the next 1-3 business days. Pending Studies at Discharge: Yes (Biopsies and washings of the left lower lobe lung mass) Stand-Alone Forms: My [facility] Medications and DC Order Prescriptions: New prednisone 20 mg tablet 40 mg PO DAILY 5 Days Qty: 10 0RF Rx Instructions: Take 2 pills daily at same time for 5 days benzonatate 100 mg capsule 100 mg PO TID PRN (Reason: cough) Qty: 30 0RF codeine-guaifenesin 10-100 mg/5 mL liquid 5 ml PO Q6H PRN (Reason: allergy symptoms) Qty: 120 0RF Rx Instructions: to [address] [place] Continued turmeric 1 tab PO HS metformin [Glucophage] 500 mg tablet 500 mg PO TID multivitamin tablet 1 tab PO QAM cholecalciferol (vitamin D3) [Vitamin D3] 125 mcg (5,000 unit) Tablet 125 mcg PO QAM Patient Comments: dose varies by which bottle she buys Discharge Orders: Discharge Order (Routine); Ordered 04/29/23 Ordered By: Quinton Dior/Other Patient Handouts: Endoscopy Chest Lung Dx, Flexible Bronchoscopy Admission Data Admit Date/Time: 04/28/23 16:38 Attending Provider: Quinton Church Admit Provider: Jc Burroughs Primary Care Provider: Dora Andrade Other Interventions: Discharge Summary Assessment (RN) Last Done: 04/29/23 11:35 Coding Level of Care Code 96032 INP/OBS DISCH >30 MIN Diagnoses Lung mass R91.8 Obstructive sleep apnea G47.33 Type 2 diabetes mellitus E11.9
--- NOTE | 2023-05-03 06:01 | Coding Query ---
PATHOLOGY To promote full compliance with coding requirements relating to patient care, physician participation is requested in all cases of director of gift planning uncertainty. Please assist us with the question(s) below: Please review the Pathology report and please document any relevant diagnosis(es) below. Thank you . ROSE MARIE Ramachandran [facility] Diagnosis(es): Diagnosis of lung mass remains unclear at this time. More tissue sampling and PET imaging will be required. ADARSHD
== END 2023-04-29 12:31 | disposition home or self-care (01) ==
LOC: ASU 08:51 → 2E 16:38 → SUATTDRO 16:38 → INTOOBSV 16:38

== ENCOUNTER 2024-04-10 08:19 | Inpatient (IN) ==
--- NOTE | 2024-04-05 08:56 | Anesthesiology Consultation ---
Date of Service April 05, 2024 Assessment & Plan (1) Encounter for pre-operative examination: - Check BSG DOS - Infectious disease screening: Per assessment on 04/05/24, No known recent infectious disease contacts. Patient had new onset of rhinorrhea/congestion 04/04/24 evening. Patient states chronic cough at baseline. Denies other infectious-related symptoms. Covid PCR test 04/05/24 ([place]) came back negative. Patient advised to contact PAT/surgeon if symptoms worsening/not at baseline prior to surgery. Chart Review Chart Review: Acceptable Risk for Surgery (pending evaluation DOS) and Patient NOT seen in Pre Admission Testing History Surgery Operation Date: 04/10/24 12:00 Proposed Procedures p Robotic Navigational Bronchoscopy - Jaren Amaral MD s Endobronchial Ultrasound - Jaren Amaral MD Height/Weight Height: 5 ft 8 in Weight: 72.575 kg Allergies Allergy/AdvReac Type Severity Reaction Status Date / Time house dust Allergy Mild Sinus Verified 04/05/24 11:28 symptoms iodine Allergy Mild Rash Verified 04/05/24 11:28 pneumococcal vaccine Allergy Unknown Rash Verified 04/05/24 08:05 Medications Home Medications Medication Instructions Recorded Confirmed Last Taken multivitamin 1 tab PO QAM 04/22/19 04/05/24 06/17/23 turmeric 1 tab PO HS 07/28/21 04/05/24 06/03/23 cholecalciferol (vitamin D3) 125 125 mcg PO QAM 04/26/23 04/05/24 06/17/23 mcg (5,000 unit) tablet (Vitamin D3) simethicone 62.5 mg oral strips 2 strip PO BID PRN Abdominal 06/01/23 04/05/24 06/23/23 (Gas-X) Discomfort metformin 1,000 mg tablet 1,500 mg PO BID 12/05/23 04/05/24 Unknown Past Medical History Medical History Adenocarcinoma of lung Dx 05/2023 Allergic rhinitis Bifascicular block Chronic anemia Chronic cough Diabetes mellitus, type 2 Ductal carcinoma in situ (DCIS) of left breast Dx 04/2023 History of skin cancer Nose Hx of multiple concussions Most recent ~2015, r/t falls from horse No residual effects from the concussions per patient Multiple pulmonary nodules determined by computed tomography of lung Nocturnal hypoxemia Per records Obstructive sleep apnea CPAP Osteopenia Per records Past Family History Family History Mother Bladder cancer Brother Lung cancer Son Mcginnis sarcoma, Onset Age: 8 Osteosarcoma, Onset Age: 16 Grandmother (Maternal) Cancer Sister H/O thyroidectomy Father Diabetes Past Surgical History Surgical History History of bronchoscopy 04/2023 History of dilatation and curettage History of hysterectomy removed 1 ovary History of lung biopsy History of oral surgery Hx of bilateral cataract extraction Hx of colonoscopy Port-A-Cath in place (06/24/23) Left Breast Lumpectomy, Left [place] Lmyph Node Biopsy, Insertion Access Right Internal Jugular Vein Port with Fluoroscopy Slow to wake up after anesthesia Social History Smoking Status: Never smoker Do You Dip or Chew Tobacco: No Hx Alcohol Use: Yes Alcohol type: wine and hard liquor alcohol intake frequency: 0-2 drinks per day Hx Substance Use: No substance use type: does not use Lab Results Anesthesia Preop Results Results Anesthesia Widget: WBC 7.61 K/ul (4.8-10.8) 04/03/24 Hgb 11.4 g/dl (12.0-16.0) L 04/03/24 Hct 34.7 % (37.0-47.0) L 04/03/24 Plt 596 K/uL (130-400) H 04/03/24 Na 140 mmol/L (136-145) 03/13/24 K 3.9 mmol/L (3.5-5.1) 03/13/24 Cl 103 mmol/L (98-107) 03/13/24 CO2 29 mmol/L (21-32) 03/13/24 BUN 20 mg/dl (6-23) 03/13/24 Creat 0.87 mg/dl (0.6-1.2) 03/13/24 Glucose Level 72 mg/dl (70-99(Fasting)) 03/13/24 PT 10.2 Seconds (9.0-12.0) 04/03/24 INR 0.9 (0.9-1.1) 04/03/24 COVID-19 PCR NEGATIVE (Negative) 10/17/24 Testing Electrocardiogram Date: 04/28/23 NSR, rate 77 bpm. RBBB. LAFB. Bifascicular block. Voltage criteria for LVH. RBBB has replaced incomplete RBBB compared to 10/08/2004 EKG. EKG was faxed to PCP for continuity of care 06/08/23 per previous anesthesia consultation; patient underwent GA 06/09/23 and 06/24/23 at [facility] without issues. Per previous anesthesia consults, cases/EKG reviewed with anesthesiologists Dr. Prieto/Dr. Brasher and deemed okay to proceed with surgery without further comment/cardiac testing/cardiac evaluation. Other Testing Chest CT Date: 03/26/24 IMPRESSION: 1. There is postsurgical change from left lower lobe resection. 2. There are numerous (greater than 20) irregular pulmonary nodules/mass-like opacities scattered throughout both lungs as above. Although some of these could potentially be on an infectious/inflammatory basis, the appearance is much more suggestive of multifocal pulmonary metastatic disease. The largest focus of masslike consolidation in the right upper lobe is similar in appearance to the l eft lower lobe lesion seen on 04/18/2023. At a minimum, short-term radiographic follow-up will be required. 3. There is a mildly enlarged left supraclavicular node, as well as prominent mediastinal nodes. These are pathologically indeterminate but suspicious. 4. Trace pleural fluid is seen in the left lung base.
--- NOTE | 2024-04-10 09:30 | Pulmonary Consultation ---
Date of Consultation April 10, 2024 Assessment & Plan (1) Multiple pulmonary nodules determined by computed tomography of lung: Plan Her latest CT chest 03/26/2024 reveals numerous greater than 20 irregular pulmonary nodules and a masslike opacity in the right upper lobe. Radiology felt that some of these may be inflammatory and others may be more evidence of multifocal pulmonary metastatic disease.. There was also mildly enlarged left supraclavicular lymph node and prominent mediastinal lymph nodes. These may be manifestations of metastatic disease versus inflammation related to Depo. I did discuss robotic navigational bronchoscopy with the patient and she consented to proceed with bronchoscopy with tissue sampling. This was also discussed with her oncologist who is in agreement. History of Present Illness Reason for Consultation: Multiple enlarging lung nodules Attending Physician: Jaren Amaral MD History of Present Illness 78-year-old female with a history of stage IIIa lung cancer status post robotic left lower lobectomy and lymphadenectomy who is presenting today for an elective robotic bronchoscopy given the enlarging bilateral lung nodules. She does endorse an increased cough similar to the cough that she had prior to her initial diagnosis of lung cancer. She has undergone neoadjuvant immunotherapy and chemo therapy. She had an R0 surgical resection in [place]. She is currently maintained on Opdivo. 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 She then received radiation therapy. Allergies Allergy/AdvReac Type Severity Reaction Status Date / Time house dust Allergy Mild Sinus Verified 04/10/24 08:49 symptoms iodine Allergy Mild Rash Verified 04/10/24 08:49 pneumococcal vaccine Allergy Unknown Rash Verified 04/10/24 08:49 Home Medications Medication Instructions Recorded Confirmed Type multivitamin 1 tab PO QAM 04/22/19 04/10/24 History turmeric 1 tab PO HS 07/28/21 04/10/24 History cholecalciferol (vitamin D3) 125 125 mcg PO QAM 04/26/23 04/10/24 History mcg (5,000 unit) tablet (Vitamin D3) simethicone 62.5 mg oral strips 2 strip PO BID PRN Abdominal 06/01/23 04/10/24 History (Gas-X) Discomfort metformin 1,000 mg tablet 1,500 mg PO BID 12/05/23 04/10/24 History cetirizine 10 mg capsule 10 mg PO DAILY 04/10/24 04/10/24 History Patient History Medical History Adenocarcinoma of lung Dx 05/2023 Allergic rhinitis Bifascicular block Chronic anemia Chronic cough Diabetes mellitus, type 2 Ductal carcinoma in situ (DCIS) of left breast Dx 04/2023 History of skin cancer Nose Hx of multiple concussions Most recent ~2015, r/t falls from horse No residual effects from the concussions per patient Multiple pulmonary nodules determined by computed tomography of lung Nocturnal hypoxemia Per records Obstructive sleep apnea CPAP Osteopenia Per records Surgical History History of bronchoscopy 04/2023 History of dilatation and curettage History of hysterectomy removed 1 ovary History of lung biopsy History of oral surgery Hx of bilateral cataract extraction Hx of colonoscopy Port-A-Cath in place (06/24/23) Left Breast Lumpectomy, Left [place] Lmyph Node Biopsy, Insertion Access Right Internal Jugular Vein Port with Fluoroscopy Slow to wake up after anesthesia Family History Mother Bladder cancer Brother Lung cancer Son Mcginnis sarcoma, Onset Age: 8 Osteosarcoma, Onset Age: 16 Grandmother (Maternal) Cancer Sister H/O thyroidectomy Father Diabetes Social History Smoking Status: Never smoker Second Hand Exposure: No; Do You Dip or Chew Tobacco: No; Tobacco Cessation Education Requested by Patient: No Hx Alcohol Use: Yes Alcohol type: wine and hard liquor Hx Substance Use: No Preferred Language: Romanian Communication Ability: Effective 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 Patient is in no apparent distress. Patient is well-developed. Eyes: Pupils are equal round and reactive to light. Conjunctivae are normal. Anicteric sclera. Ears nose, mouth and throat: No perioral cyanosis. Neck: Trachea is midline. Visual inspection is normal. Respiratory: Clear to auscultation bilaterally. No use of accessory muscles. No significant clubbing noted. Cardiovascular: Regular rate and rhythm. No murmurs. No edema. Gastrointestinal: Normal bowel sounds, soft, nontender and nondistended. No hepatosplenomegaly noted. Musculoskeletal: No cyanosis. Patient is able to move all extremities. Strength is 5 out of 5 in the upper and lower extremities. Skin: No rashes, warm dry and intact. Neurologic: No obvious focal neurological deficits seen. Psychiatric: Alert and oriented x3 with a euthymic affect. Results & Data Results & Data Vital Signs (Past 12 Hours) Vital Signs Temp Pulse Resp BP Pulse Ox O2 Del Method 04/10/24 08:51 Room Air, CPAP 04/10/24 08:51 36.8 C 87 18 130/75 96 Room Air, CPAP PG Care Time/CCT Total # of Minutes Spent Total Time Spent with Patient: Total time spent is greater than 50% in coordination of care (as documented) at patient's floor/unit and/or counseling patient: Coding Level of Care Code 46617 IN/OBS CONSULT LVL 3,45M Diagnoses Multiple pulmonary nodules determined by computed tomography of lung R91.8
--- NOTE | 2024-04-10 09:40 | History & Physical Bridge Note ---
Date of Service April 10, 2024 History & Physical Bridge Note I have examined the patient, reviewed the History & Physical and in the interval since the performance of the History & Physical I have noted the following changes of clinical significance: no changes noted
[2024-04-10] MEDS ORDERED: ePHEDrine sulfate 50 MG/ML AMP IV PRN (10:27)
[2024-04-10] MEDS ORDERED: ONDANSETRON INJ 2 MG/ML 2 ML VIAL IV PRN (10:27)
[2024-04-10] MEDS ORDERED: ATROPINE SULFATE 0.1 MG/ML 10ML SYR IV PRN (10:27)
[2024-04-10] MEDS ORDERED: fentaNYL citrate PF 100 MCG/2 ML VIAL IV PRN (10:27)
[2024-04-10] MEDS ORDERED: fentaNYL citrate PF 100 MCG/2 ML VIAL ONE (10:37)
[2024-04-10] MEDS ORDERED: SUGAMMADEX SODIUM 200 MG/2 ML VIAL IV ONE (12:12)
--- NOTE | 2024-04-10 12:44 | XRay Report ---
SUPINE PORTABLE AP CHEST RADIOGRAPH CLINICAL HISTORY: Post bronchoscopy. COMPARISON STUDY: Chest radiograph June 24, 2023. Chest CT March 26, 2024. FINDINGS: Tip of endotracheal tube is 3.2 cm above the julieta. Tip of right internal jugular Infuse-a -Port is within the distal SVC. Right perihilar mass-like opacity is noted. Numerous additional pulmo nary nodules are present. Blunting of the left costophrenic angle is likely due to epicardial fat pad . There is no definite pleural effusion. No evidence for pulmonary edema. Cardiomediastinal silhouett e is stable. Postoperative findings within the left lung are again noted. IMPRESSION: 1. Tip of endotracheal tube 3.7 cm above the julieta. 2. No pneumothorax. 3. Redemonstration of mass-like opacities and nodules within the lungs. ACT 112: Negative or not required by law. Electronically signed by: Cali Dennis M.D. 04/10/2024 12:42 PM
[2024-04-10] MEDS ORDERED: PROPOFOL IV EMULSION 10 MG/ML 20 ML VIAL IV ONE (13:06)
[2024-04-10] MEDS ORDERED: PHENYLEPHRINE HCL 10 MG/ML VIAL ONE (13:06)
[2024-04-10] MEDS ORDERED: ESMOLOL HCL INJ 10 MG/ML 10ML VIAL IV ONE (13:06)
[2024-04-10] MEDS ORDERED: NOREPINEPHRINE BITARTRATE 1 MG/ML 4 ML VIAL IV ONE (13:06)
[2024-04-10] MEDS ORDERED: ROCURONIUM BROMIDE 10 MG/ML 5 ML VIAL IV ONE (13:15)
--- NOTE | 2024-04-10 13:31 | Procedure Note ---
Procedure Note Date of Service April 10, 2024 Procedure: Fiberoptic bronchoscopy Electromagnetic navigational bronchoscopy with fluoroscopic guidance Electromagnetic navigational bronchoscopy with transbronchial biopsies under fluoroscopic guidance Provider: Jaren Amaral MD Consent: Signed by patient and timeout verified prior to procedure. Indication: Abnormal CT scan with multifocal nodules. Procedure: Patient was brought to the OR suite. Consent was verified. Appropriate radiographic studies had been reviewed prior to the procedure. General anesthesia was initiated by the anesthesia team and the patient was intubated with an 8.5 endotracheal tube. After initiation of general anesthesia, the fiberoptic scope was advanced through the existing endotracheal tube via the adapter. The tube was 5 cm above the julieta and secured in place. A systematic inspection of the airways was then conducted. The right tracheobronchial tree was normal in anatomic configuration with normal mucosa. Left tracheobronchial tree also demonstrated a normal anatomic configuration with normal mucosa. No endobronchial lesions were identified. The fiberoptic scope was then removed. The robotic adapter was then secured to the endotracheal tube and secured using the flexible arm attached to the bed. The patient had previously been placed on a bed with an electromagnetic navigation field and a tilt table in place. The robot was advanced to the head of the bed and the robotic arm was docked to the endotracheal tube via the robotic adapter. Robot arm was withdrawn in normal fashion and the scope attached with the antibuckling device. The robotic scope was then maneuvered into the endotracheal tube where controller registration took place. Once that was confirmed the scope was advanced to the main julieta and verified in good position. Navigational registration was then conducted without difficulty. Once registration was completed, the robotic bronchoscope was used to navigate to left upper lobe pulmonary nodule. Once the scope was approximately 15 to 20 mm from the right lower lobe lesion, a fluoroscopic tomographic spin was conducted with reconstruction of images. We performed FNA passes and forcep biopsies of the right lower lobe lesion. We then turned our attention and we navigated to the right upper lobe lesion and performed an additional tomographic spin. We performed several FNA passes and forcep biopsies of this lesion. I was alerted by the anesthesiologist that the endotracheal tube was partially dislodged from the ventilator and that the patient may have spontaneously extubated. The endotracheal tube was adjusted by the anesthesiologist. Patient maintained saturations in the mid to high 90s throughout this timeframe. Shortly thereafter, patient started having evidence of elevated ST segments in lead V1 and the procedure was aborted. The robot was then undocked from the patient and removed. I did quickly inserted the diagnostic scope and did not see any evidence of airway bleeding or tracheal deviation. The endotracheal tube appeared to be in proper position about 3 cm above the julieta. The bronchoscope was then completely removed. Patient received phenylephrine boluses for hypotension and then Levophed bolus for bradycardia and hypotension which resolved the patient's bradycardia and hypotension. I also did a [id number] ultrasound which revealed a dilated IVC and mixing artifact in the right ventricle with bubbling likely related to infusion of medications. We then did an EKG which did show precordial ST segment elevations diffusely. We spoke with cardiology, Dr. Barrientos. Her ST segment intervals improved and she remained hemodynamically stable without the need of further pressors. We performed an ABG which demonstrated normal acid-base status and normal electrolytes. We also ordered a chest x-ray which revealed mild inflammatory changes related to lung biopsy, but no evidence of pneumothorax. Sedation was then weaned per the anesthesia staff and the patient had difficulty with waking up and would not follow commands or do purposeful movements. She was moved to the ICU. Stat echo is being performed in the ICU currently without any overt pathology seen. EBL: Less than 10 ml Patient has been transferred to the ICU for further care. She is currently intubated and off of all sedation. She is hemodynamically stable. A stat CT of her head and stat CT chest with PE protocol was ordered. Notably, she does have iodine listed as an allergy. Per the the anesthesiologist this allergy was only related to iodine cleansing solution which caused a mild skin rash. Thus I felt that it is safe for her to undergo a CT chest with PE protocol. These studies are pending. [facility] Procedure Codes (Charges) Pulmonary/Thoracic Procedure 1: Pulmonary and Thoracic: 06588 Navigational Bronchoscopy Procedure 2: Pulmonary and Thoracic: 39529 Fine needle aspiration biopsy, w ultrasound guidance; 1st lesion Procedure 3: Pulmonary and Thoracic: 23398 Bronch w needle bx add'l lobe Procedure 4: Pulmonary and Thoracic: 81629 Bronchoscopy w/ transbronchial lung bx Coding CPT Codes Pulmonary/Thoracic - Pulmonary and Thoracic: 05376 Navigational Bronchoscopy ([id number]) Pulmonary/Thoracic - Pulmonary and Thoracic: 30628 Fine needle aspiration biopsy, w ultrasound guidance; 1st lesion ([id number]) Pulmonary/Thoracic - Pulmonary and Thoracic: 89818 Bronch w needle bx add'l lobe ([id number]) Pulmonary/Thoracic - Pulmonary and Thoracic: 16983 Bronchoscopy w/ transbronchial lung bx ([id number]) Additional Codes Date of Service ([facility].[email or web address])
[2024-04-10] MEDS ORDERED: STAT IV Infusion **Titration per Protocol STA (13:49)
[2024-04-10 13:54] LABS: Basophils # (auto) 0.02 K/uL (0.00-0.20); Basophils % (auto) 0.3 %; Eosinophils # (auto) 0.07 K/uL (0.00-0.50); Eosinophils % (auto) 0.9 %; Hematocrit (blood only) 31.5 % (37.0-47.0); Hemoglobin 10.8 g/dl (12.0-16.0); Immature Granulocytes # (auto) 0.04 K/uL (0.01-0.20); Immature Granulocytes % (auto) 0.5 %; Lymphocytes # (auto) 1.12 K/uL (1.20-3.40); Lymphocytes % (auto) 14.3 %; Mean Corpuscular Hemoglobin 29.8 pg (25.0-34.0); Mean Corpuscular Hgb Conc 34.3 g/dL (32.0-36.0); Mean Corpuscular Volume 86.8 fL (80.0-100.0); Mean Platelet Volume 8.7 fL (9.4-12.4); Monocytes # (auto) 0.61 K/uL (0.11-0.59); Monocytes % (auto) 7.8 %; Neutrophils # (auto) 5.96 K/uL (1.40-6.50); Neutrophils % (auto) 76.2 %; Platelet Count 403 K/uL (130-400); RDW Coefficient of Variation 13.3 % (11.5-14.5); RDW Standard Deviation 42.1 fL (36.4-46.3); Red Blood Count 3.63 M/uL (4.20-5.40); White Blood Count 7.82 K/ul (4.8-10.8)
--- NOTE | 2024-04-10 13:55 | Anesthesiology Progress Note ---
Date of Service April 10, 2024 Anesthesia Post Procedure Vital Signs Vital Signs: Temp Pulse Pulse Resp BP BP Pulse Ox 04/10/24 13:41 91 H 14 140/103 H 99 04/10/24 13:35 153/84 H 04/10/24 13:35 153/84 H 04/10/24 13:33 83 17 98 04/10/24 13:30 82 17 98 04/10/24 13:30 142/82 H 04/10/24 13:25 36.3 C L 76 16 140/82 99 04/10/24 13:20 83 14 153/90 H 100 04/10/24 13:15 77 14 98 04/10/24 13:15 04/10/24 13:12 77 14 135/75 99 04/10/24 08:51 04/10/24 08:51 36.8 C 87 18 130/75 96 O2 Del Method FiO2 04/10/24 13:41 Mechanical Vent 40 04/10/24 13:35 04/10/24 13:35 04/10/24 13:33 04/10/24 13:30 04/10/24 13:30 04/10/24 13:25 Mechanical Vent 40 04/10/24 13:20 Mechanical Vent 40 04/10/24 13:15 40 04/10/24 13:15 Mechanical Vent 04/10/24 13:12 Mechanical Vent 40 04/10/24 08:51 Room Air, CPAP 04/10/24 08:51 Room Air, CPAP Transfer of Care Handoff Completed per policy Notes Mental Status: alert / awake / arousable Patient Amnestic to Procedure: Yes Nausea / Vomiting: adequately controlled Pain: adequately controlled Airway Patency, RR, SpO2: see Notes below BP & HR: stable & adequate and see Notes below Hydration State: stable & adequate Anesthetic Complications: see Notes below Notes: Approximately 1.5 hours in to case, patient suddenly dropped BP and ETCO2 with concominant ST elevations. The procedure was aborted when the hemodynamics were not able to be quickly reversed. This progressed to bradycardia and further ST elevations which was confirmed in V1-V5 on ecg. Bedside echo by Dr Amaral confirmed biventricular failure. I did speak with Dr Barrientos of cardiology regarding a possible urgent cardiac cath. The hemodynamics did respond to treatment and ecg signs of ischemia resolved. The anesthetic was weaned and despite adequate hemodynamics and respiratory dynamics, she would not awaken to follow commands after 1 hour. At this point the decision was made to transfer the patient intubated to the ICU for further workup and management of her cardiac and neurologic status. Dr Amaral, who was doing the procedure, is also covering the ICU today and is agreement with this plan.
[2024-04-10 13:59] LABS: iSTAT Arterial Blood Gas HCO3 27 meg/L (19-24); iSTAT Arterial Blood Gas pCO2 45 mmHg (35-46); iSTAT Arterial Blood Gas pH 7.38 (7.35-7.45); iSTAT Arterial Blood Gas pO2 59 mmHg (80-95); iSTAT Carbon Dioxide 28 mmol/L (24-31); iSTAT Hematocrit 30 % (37-47); iSTAT Hemoglobin 10.2 g/dl (12.0-16.0); iSTAT Sample Type Arterial; iSTAT Sodium 135 mmol/L (135-144)
[2024-04-10 14:00] LABS: iSTAT Creatinine 0.7 mg/dl (0.6-1.3); iSTAT Hemoglobin 10.5 g/dl (12.0-16.0); iSTAT Ionized Calcium 1.23 mmol/l (1.12-1.32); iSTAT Potassium 3.6 mmol/L (3.3-5.0)
[2024-04-10 14:02] LABS: Albumin Level 3.7 gm/dl (3.4-5.0); Bilirubin,Total 0.4 mg/dl (0.2-1.0); Calcium 8.7 mg/dl (8.6-10.3); Potassium 3.9 mmol/L (3.5-5.1)
[2024-04-10] MEDS: LABETALOL HCL IV 5 MG/ML 20ML IV ONE (14:02)
[2024-04-10 14:08] LABS: Albumin Globulin Ratio 1.4 (0.9-2); BUN Creatinine Ratio 14.8 (10-20); Creatinine Clr Calc Pharmacy 57.7 ml/min; Globulin 2.7 gm/dl (2.5-4.0); Total Protein 6.4 gm/dl (6.0-8.3)
[2024-04-10] MEDS: OPTIRAY 320 125ml IV ONE (14:18)
[2024-04-10] MEDS: niCARdipine 25 MG in SODIUM CHLORIDE 0.9% 240 ML IV SCH (14:27)
--- NOTE | 2024-04-10 14:27 | XCELERA ---
[id number]
[2024-04-10] MEDS: LR 15ML/HR IV SCH (14:32)
[2024-04-10] MEDS: ICU Protocol for HYPERglycemia SCH (14:33)
--- NOTE | 2024-04-10 14:36 | History & Physical Report ---
Date of Service April 10, 2024 Assessment & Plan (1) Stroke-like symptoms: Plan: Last known well 10:45am, s/p bronchoscopy Stroke alert called in the ICU, not TNK candidate due to biopsies taken in bronchoscopy Left sided hemiparesis ?neglect, expressive dysphasia (although this maybe waking up from anesthesia) CT head with angiograms unremarkable MRI brain Consult neurology (2) Cardiac abnormality: Plan: ST elevations during operation, suspected due to CVA as above as TTE without wall motion abnormalities, trend troponin overnight (3) Status post bronchoscopy: Plan: Follow up pathology Plan VTE Prophylaxis - deferred to ICU team Diet - NPO Disposition - admit to ICU Admission and Anticipated Discharge Date Admission Date: April 10, 2024 History of Present Illness Chief Complaint: Left sided hemiparesis Primary Care Provider: Jonn Cole MD Roxana Hodges is a 78 year old female who presents to the ICU as a direct admission from bronchoscopy due to ST elevations during the procedure and on waking up she is unable to move the left side of her body. Unable to get any significant history from the patient at this time due to expressive dysphasia and waking up from anesthesia. 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 Allergies Allergy/AdvReac Type Severity Reaction Status Date / Time house dust Allergy Mild Sinus Verified 04/10/24 08:49 symptoms iodine Allergy Mild Rash Verified 04/10/24 08:49 pneumococcal vaccine Allergy Unknown Rash Verified 04/10/24 08:49 Home Medications Medication Instructions Recorded Confirmed Type multivitamin 1 tab PO QAM 04/22/19 04/10/24 History turmeric 1 tab PO HS 07/28/21 04/10/24 History cholecalciferol (vitamin D3) 125 125 mcg PO QAM 04/26/23 04/10/24 History mcg (5,000 unit) tablet (Vitamin D3) simethicone 62.5 mg oral strips 2 strip PO BID PRN Abdominal 06/01/23 04/10/24 History (Gas-X) Discomfort metformin 1,000 mg tablet 1,500 mg PO BID 12/05/23 04/10/24 History cetirizine 10 mg capsule 10 mg PO DAILY 04/10/24 04/10/24 History Past Med/Surg History Problem List (Updated 04/11/24 @ 06:44 by Romario Jaime MD) Status post bronchoscopy Cardiac abnormality Stroke-like symptoms Acute encephalopathy Multiple pulmonary nodules determined by computed tomography of lung Encounter for pre-operative examination Insomnia Colon polyps (Acute) Hypersomnia (Acute) Internal hemorrhoids (Acute) hx Medical History Adenocarcinoma of lung Dx 05/2023 Allergic rhinitis Bifascicular block Chronic anemia Chronic cough Diabetes mellitus, type 2 Ductal carcinoma in situ (DCIS) of left breast Dx 04/2023 History of skin cancer Nose Hx of multiple concussions Most recent ~2015, r/t falls from horse No residual effects from the concussions per patient Multiple pulmonary nodules determined by computed tomography of lung Nocturnal hypoxemia Per records Obstructive sleep apnea CPAP Osteopenia Per records Surgical History History of bronchoscopy 04/2023 History of dilatation and curettage History of hysterectomy removed 1 ovary History of lung biopsy History of oral surgery Hx of bilateral cataract extraction Hx of colonoscopy Port-A-Cath in place (06/24/23) Left Breast Lumpectomy, Left Pillow Lmyph Node Biopsy, Insertion Access Right Internal Jugular Vein Port with Fluoroscopy Slow to wake up after anesthesia Family History Mother Bladder cancer Brother Lung cancer Son Mcginnis sarcoma, Onset Age: 8 Osteosarcoma, Onset Age: 16 Grandmother (Maternal) Cancer Sister H/O thyroidectomy Father Diabetes Social History Smoking Status: Never smoker Second Hand Exposure: No; Do You Dip or Chew Tobacco: No; Tobacco Cessation Education Requested by Patient: No Hx Alcohol Use: Yes Alcohol type: wine and hard liquor Hx Substance Use: No Preferred Language: Croatian Communication Ability: 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 Beliefs That Will Affect Care: None marital status: / Current Living Situation: Alone Current Living Situation Comment: lives at [facility]; Other Information That Helps Us Care for You: No Feels Safe at Home: Yes Safety Concerns: Feels Safe At This Time Childhood Exposure to Second-Hand Smoke: Yes Assistive Devices: Glasses and Hearing Aid - Bilateral Review of Systems Review of Systems: Unobtainable due to cognitive status Physical Exam Constitutional: well developed; + not well nourished and no acute distress Eyes: PERRL; + abnormal visual field confrontation (unable to adequately assess) ENMT: Mouth: + dry oral mucous membranes Respiratory: normal respiratory effort, lungs clear to auscultation Cardiovascular: RRR, no murmur, no edema Gastrointestinal (Abdomen): normal bowel sounds, soft, nontender, no hepatosplenomegaly Skin: no rashes, warm and dry Neurologic: awake; + does not move all extremities (not moving her left side) Speech / Cognition: + expressive aphasia (able to recognize only a few words, but saying true words, no dysarthria) Cranial Nerves: PERRL, tongue midline and no nystagmus; + EOM not intact (unable to adequately assess does no look to left side), + abnormal facial strength (left facial droop) and + not able to elevate shoulders (no movement on left side) Coordination: + abnormal [id number]-[id number] test (no movement on left side) Increased tone on left upper and lower extremities Psychiatric: Orientation: alert, oriented to person and oriented to place; + not oriented to time Results & Data Results & Data Vital Signs (Past 12 Hours) Vital Signs Temp Pulse Pulse Resp BP BP Pulse Ox 04/10/24 14:02 89 185/119 H 04/10/24 13:41 91 H 14 140/103 H 99 04/10/24 13:35 153/84 H 04/10/24 13:35 153/84 H 04/10/24 13:33 83 17 98 04/10/24 13:30 82 17 98 04/10/24 13:30 142/82 H 04/10/24 13:25 36.3 C L 76 16 140/82 99 04/10/24 13:20 83 14 153/90 H 100 04/10/24 13:15 77 14 98 04/10/24 13:15 04/10/24 13:12 77 14 135/75 99 04/10/24 08:51 04/10/24 08:51 36.8 C 87 18 130/75 96 O2 Del Method FiO2 04/10/24 14:02 04/10/24 13:41 Mechanical Vent 40 04/10/24 13:35 04/10/24 13:35 04/10/24 13:33 04/10/24 13:30 04/10/24 13:30 04/10/24 13:25 Mechanical Vent 40 04/10/24 13:20 Mechanical Vent 40 04/10/24 13:15 40 04/10/24 13:15 Mechanical Vent 04/10/24 13:12 Mechanical Vent 40 04/10/24 08:51 Room Air, CPAP 04/10/24 08:51 Room Air, CPAP Laboratory Results None available at time of admission, pending labs Diagnostic Findings CT angio head wo/w CLINICAL HISTORY: 78 years-old Female with left side weakness. Acute strokelike symptoms COMPARISON STUDY: CTA neck of same day TECHNIQUE: Unenhanced axial CT scan of the brain is performed. Subsequently, following the IV administration of 119 cc of Optiray, CT angiogram of the brain was performed from the skull base to the vertex. Images are reviewed in the axial, sagittal, and coronal planes. 3-D MIPS images are created and assessed. IV contrast was administered without complication. All measurements were obtained according to NASCET criteria. A dose lowering technique was utilized adhering to the principles of ALARA. CT DOSE: 2009.63 mGy.cm FINDINGS: CT BRAIN: Motion degraded exam. Involutional changes with chronic microvascular ischemic disease. There is no acute intracranial hemorrhage, midline shift, hydrocephalus, intracranial mass, territorial ischemia or abnormal extra-axial collections. No abnormal intra-axial or extra-axial enhancement. Mastoid air cells and middle ear cavities are clear. No calvarial fracture. Mild mucosal thickening of the paranasal sinuses. Mastoid air cells are clear. CT ANGIOGRAM OF THE BRAIN: The imaged bilateral internal carotid arteries are patent. The bilateral anterior and middle cerebral arteries are also patent. The vertebrobasilar system and posterior cerebral arteries are widely patent. There is no aneurysm, high-grade stenosis, or proximal branch occlusion identified. Dural sinuses appear patent. Branch Office Manager localizer images demonstrate masslike opacity of the right midlung with left pleural effusion and left basilar opacities. Cardiomegaly. IMPRESSION: 1. No acute intracranial abnormality. 2. Unremarkable CTA of the head. CT ANGIOGRAM OF THE CHEST CLINICAL HISTORY: Left-sided weakness. Lung cancer. COMPARISON STUDY: Prior chest CT scans, most recently dated 03/26/2024 TECHNIQUE: Following the IV administration of 119 cc of Optiray 320, CT angiogram of the chest is performed from the upper abdomen to the thoracic inlet using the pulmonary embolus protocol. Images are reviewed in the axial, sagittal, and coronal planes. 3-D MIPS images are created and assessed. IV contrast was administered without complication. A dose lowering technique was utilized adhering to the principles of ALARA. The examination is degraded by motion artifact, as well as by streak artifact from the arms which could not be elevated of the chest. FINDINGS: Thyroid: Imaged portions of the thyroid gland are normal in size and attenuation. Thoracic aorta: There is mild atherosclerotic calcification of the thoracic aorta. There is ectasia of the ascending thoracic aorta which measures up to 3.9 cm diameter. The remainder of the thoracic aorta is normal in caliber, and the arch demonstrated bovine variant anatomy. No dissection is seen. Pulmonary vasculature: The pulmonary trunk is normal in caliber. There are no filling defects identified in the main, lobar, or segmental pulmonary arteries to suggest pulmonary embolus. Heart: A right internal jugular central venous infusion port is in place. The heart is mildly enlarged and without pericardial effusion. Lungs and pleural spaces: There is postsurgical change and volume loss from left lower lobe resection. Trace pleural fluid is seen at the left lung base. There are numerous (greater than 20) irregular pulmonary nodules/mass lesions scattered throughout both lungs. A focus of masslike consolidation in the right upper lobe along the minor fissure seen on image #120 measures up to 7.5 cm. This is unchanged to modest increased from previous. There are two 2.3 cm right lower lobe lesions seen on images #95 and #104. A 2.3 cm lesion at the left lung base is seen on image #63 . Numerous small pulmonary nodules are new from 03/26/2024. Several of the nodular foci appear to show mild cavitation. Lower neck: A mildly enlarged left supraclavicular node on image #195 measures 1.2 x 0.8 cm. Mediastinum: There are prominent mediastinal lymph nodes. A subcarinal node on image #122 measures 13 mm short axis. High pretracheal nodes measure up to 9 mm short axis. Rain: Clear. Axillae: There is no axillary lymphadenopathy. Upper abdomen: Partially visualized upper abdominal viscera is within normal limits. Skeletal structures: The skeletal structures are osteopenic. There is a mild chronic superior endplate compression deformity of T3. There are numerous spinal hemangiomas. No lytic or blastic bony lesions are seen. IMPRESSION: 1. There is no evidence of pulmonary embolus in the main, lobar, or segmental pulmonary arteries. 2. Cardiomegaly and emphysema with postsurgical change from left lower lobe res ection. 3. Again seen are numerous (greater than 20) irregular pulmonary nodules/mass- like opacities scattered throughout both lungs as above. Numerous subcentimeter lesions are new as compared to 03/26/2024. Although some of these could potentially be on an infectious/inflammatory basis, the appearance is much more suggestive of progressive multifocal pulmonary metastatic disease. 4. There is a mildly enlarged left supraclavicular node, as well as prominent mediastinal nodes. These are pathologically indeterminate but suspicious. 5. Trace pleural fluid is seen in the left lung base. 6. Additional findings as above. CT ANGIOGRAPHY OF THE NECK WITH CONTRAST CLINICAL HISTORY: neuro deficit, acute stroke suspected. Left-sided weakness. COMPARISON STUDY: PET CT August 31, 2023. Technique: CT angiography of the carotid and vertebral arteries was obtained using Optiray and 3D reconstruction on an independent workstation. NASCET criteria was utilized. Automated exposure control was utilized for the study. A dose lowering technique was utilized adhering to the principles of ALARA. Findings: Multiple pulmonary nodules are better depicted on the chest CT which will be reported separately. There is enlargement of the bilateral submandibular glands. There is also pharyngeal edema which results in moderate narrowing of the hypopharynx and supraglottic airway. No fluid collection is present. There is no prevertebral edema. The bilateral common carotid, cervical internal carotid and vertebral arteries are patent. No stenosis, dissection or aneurysm within the major vessels of the neck is present. The CTA of the head will be reported separately. IMPRESSION: 1. No stenosis or dissection within the bilateral common carotid, cervical internal carotid or vertebral arteries. 2. Enlargement of the bilateral submandibular glands and parapharyngeal edema which results in moderate narrowing of the hypopharynx and supraglottic airway. These findings are nonspecific. Close clinical follow-up is recommended. No associated fluid collections. Code Status & VTE Plan VTE Prophylaxis Plan VTE Prophylaxis will be ordered: Yes PG Care Time/CCT Total # of Minutes Spent Total Time Spent with Patient: Total time spent is greater than 50% in coordination of care (as documented) at patient's floor/unit and/or counseling patient: Coding Level of Care Code 74082 INT INP/OBS CARE 3/75MIN Diagnoses Stroke-like symptoms R29.90 Cardiac abnormality Q24.9 Status post bronchoscopy Z98.890
--- NOTE | 2024-04-10 14:38 | CT Scan Report ---
CT angio head wo/w CLINICAL HISTORY: 78 years-old Female with left side weakness. Acute strokelike symptoms COMPARISON STUDY: CTA neck of same day TECHNIQUE: Unenhanced axial CT scan of the brain is performed. Subsequently, following the IV adminis tration of 119 cc of Optiray, CT angiogram of the brain was performed from the skull base to the vert ex. Images are reviewed in the axial, sagittal, and coronal planes. 3-D MIPS images are created and a ssessed. IV contrast was administered without complication. All measurements were obtained according to NASCET criteria. A dose lowering technique was utilized adhering to the principles of ALARA. CT DOSE: 2009.63 mGy.cm FINDINGS: CT BRAIN: Motion degraded exam. Involutional changes with chronic microvascular ischemic disease. There is no a cute intracranial hemorrhage, midline shift, hydrocephalus, intracranial mass, territorial ischemia o r abnormal extra-axial collections. No abnormal intra-axial or extra-axial enhancement. Mastoid air cells and middle ear cavities are clear. No calvarial fracture. Mild mucosal thickening of the parana raine sinuses. Mastoid air cells are clear. CT ANGIOGRAM OF THE BRAIN: The imaged bilateral internal carotid arteries are patent. The bilateral anterior and middle cerebral arteries are also patent. The vertebrobasilar system and posterior cerebral arteries are widely meyer nt. There is no aneurysm, high-grade stenosis, or proximal branch occlusion identified. Dural sinuses appear patent. Pre Planning Advisor localizer images demonstrate masslike opacity of the right midlung with left pleural effusion a nd left basilar opacities. Cardiomegaly. IMPRESSION: 1. No acute intracranial abnormality. 2. Unremarkable CTA of the head. ACT 112: Negative or not required by law. The above report was generated using voice recognition software. It may contain grammatical, syntax o r spelling errors. Electronically signed by: Rohith Benitez M.D. 04/10/2024 2:36 PM
--- NOTE | 2024-04-10 14:40 | CT Scan Report ---
CT ANGIOGRAPHY OF THE NECK WITH CONTRAST CLINICAL HISTORY: neuro deficit, acute stroke suspected. Left-sided weakness. COMPARISON STUDY: PET CT August 31, 2023. Technique: CT angiography of the carotid and vertebral arteries was obtained using Optiray and 3D rec onstruction on an independent workstation. NASCET criteria was utilized. Automated exposure control was utilized for the study. A dose lowering technique was utilized adhering to the principles of ALA RA. Findings: Multiple pulmonary nodules are better depicted on the chest CT which will be reported separ ately. There is enlargement of the bilateral submandibular glands. There is also pharyngeal edema wh ich results in moderate narrowing of the hypopharynx and supraglottic airway. No fluid collection is present. There is no prevertebral edema. The bilateral common carotid, cervical internal carotid and vertebral arteries are patent. No stenosis, dissection or aneurysm within the major vessels of the ne ck is present. The CTA of the head will be reported separately. IMPRESSION: 1. No stenosis or dissection within the bilateral common carotid, cervical internal carotid or verteb ral arteries. 2. Enlargement of the bilateral submandibular glands and parapharyngeal edema which results in modera te narrowing of the hypopharynx and supraglottic airway. These findings are nonspecific. Close clinic al follow-up is recommended. No associated fluid collections. ACT 112: Negative or not required by law. Electronically signed by: Cali Dennis M.D. 04/10/2024 2:38 PM
[2024-04-10 14:54] LABS: Albumin Globulin Ratio 1.4 (0.9-2); Albumin Level 3.4 gm/dl (3.4-5.0); BUN Creatinine Ratio 15.4 (10-20); Bilirubin,Total 0.4 mg/dl (0.2-1.0); Calcium 8.2 mg/dl (8.6-10.3); Globulin 2.4 gm/dl (2.5-4.0); Magnesium 1.7 mg/dl (1.7-2.4); Potassium 3.7 mmol/L (3.5-5.1); Total Protein 5.8 gm/dl (6.0-8.3)
[2024-04-10 15:00] LABS: Troponin I High Sensitivity 20.9 pg/ml (0-14)
[2024-04-10 15:19] LABS: Partial Thromboplastin Time 27 Seconds (21-31); Prothrombin Time 10.8 Seconds (9.0-12.0)
--- NOTE | 2024-04-10 15:25 | Critical Care Consultation ---
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 Neurologic: Patient with evidence of right MCA infarct on clinical exam. Spoke with stroke neurologist from [facility] who indicates there may be subtle attenuation of the right basal ganglia. No large M1 lesion seen for mechanical thrombectomy. MRI of the brain with and without contrast ordered to rule out metastatic disease and also further characterize the degree of stroke. Should she have decline in her mental status and respiratory status, will likely need to proceed with more aggressive measures such as intubation and transfer to a tertiary center for possible hemicraniotomy. At this point in time there is no role for transfer unless she clinically declines. Keep head of the bed elevated above 40 degrees. Will involve speech therapy, PT and OT. Will maintain n.p.o. until she is cleared by speech. Maintain systolic blood pressures under 185. Allow for permissive hypertension. Maintain euglycemia and normothermia. Patient likely hypercoagulable due to active malignancy. Pulmonary: Minimal oxygen requirements at this present time. CT chest findings highly concerning for recurrent metastatic lung cancer. Right upper lobe biopsy specimens today and rapid pathological evaluation were indicating material suspicious for possible malignancy. Final pathology is pending. Patient currently on immunotherapy which is going to be on hold at this time while inpatient. Cardiovascular: Patient with ST segment elevations during procedure, but these quickly improved. Troponin is minimally elevated. Will trend troponin. Echocardiogram is largely unremarkable. Monitor closely on telemetry and maintain MAP above 65 mmHg. Will consider addition of aspirin in the next 1 to 2 days. Gastrointestinal: NPO. Renal: No significant issues at present. Follow urine output closely. Infectious disease: No signs of infectious etiology at this present time Hematologic: Patient with mild anemia likely related to chronic disease. She is likely hypercoagulable related to her active malignancy. Will consider the addition of VTE prophylaxis in the next day or 2 if no evidence of hemoptysis or hemorrhagic conversion on brain imaging. Endocrine: Maintain euglycemia. Lines and tubes: Peripheral IVs and Leslie catheter in place VTE prophylaxis: SCD CODE STATUS: Full code Family at bedside: Patient's daughter and sister updated over the phone Disposition: ICU I have personally spent 89 minutes of critical care time in the direct management of this patient. This is a life/limb threatening event. This includes time spent evaluating patient, direct bedside care, chart review, placing orders, interpretation of diagnostic studies, discussion with consultants, patient, and family members, as well as other required patient management activities. This time is exclusive of all separately billable procedures, and teaching time and separate from and in addition to any other critical care service time. Thank you for allowing us to participate in the care of this patient. 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 There was concern by hematology that these nodules may represent PD-L1 pneumonitis versus recurrence of lung cancer. She underwent bronchoscopy today and during the bronchoscopy had ST elevations on telemetry. The procedure was aborted. The patient received phenylephrine and Levophed due to hypotension and bradycardia. She became hemodynamically stable and did not require any further vasoactive medications. She had trouble with extubation and was ultimately transferred to ICU intubated and on mechanical ventilator. Ultimately, she started moving her right arm and was more arousable and then was successfully extubated to nasal cannula. She was found to have dense left hemiparesis of her left upper extremity and rightward gaze preference. A stroke alert was called. I also discussed the case with the telestroke physician at [facility]. He was able to review the CT head images and felt that there was a subtle attenuation in the right basal ganglia. No significant M1 lesions were identified on CTA of head or neck. His recommendation was for an MRI of the brain with and without contrast to rule out evidence of metastatic disease in the brain and further characterized the stroke. He suspects that she likely had a right MCA stroke. I spoke with the patient's sister and daughter over the phone (Karen Miller and Lindy Simmons, respectively) and updated them of the current situation. Patient also had a stat echo which revealed normal LVEF of 55 to 60%. Normal RV. Troponin is minimally elevated to 20.9. ABG was 7.38/45/59. Stat CTA of the chest was personally reviewed by me. Multifocal lung nodules noted which appear stable compared to prior. Mild atelectasis noted in the lower lobes. No evidence of large pulmonary embolism. Official read is pending. NIH stroke scale status post extubation was 17. Last known well time was approximately 10:40 AM. Notably, the patient did relate that she was dealing with some URI symptoms including mild cough and congestion which has been improving since Tuesday of last week. She denied any neurological symptoms prior to the procedure. I confirmed this with the patient's sister as well who saw her earlier today and noted that she was behaving normally without any obvious neurological deficits. Allergies Allergy/AdvReac Type Severity Reaction Status Date / Time house dust Allergy Mild Sinus Verified 04/10/24 08:49 symptoms iodine Allergy Mild Rash Verified 04/10/24 08:49 pneumococcal vaccine Allergy Unknown Rash Verified 04/10/24 08:49 Home Medications Medication Instructions Recorded Confirmed Type multivitamin 1 tab PO QAM 04/22/19 04/10/24 History turmeric 1 tab PO HS 07/28/21 04/10/24 History cholecalciferol (vitamin D3) 125 125 mcg PO QAM 04/26/23 04/10/24 History mcg (5,000 unit) tablet (Vitamin D3) simethicone 62.5 mg oral strips 2 strip PO BID PRN Abdominal 06/01/23 04/10/24 History (Gas-X) Discomfort metformin 1,000 mg tablet 1,500 mg PO BID 12/05/23 04/10/24 History cetirizine 10 mg capsule 10 mg PO DAILY 04/10/24 04/10/24 History Patient History Medical History Adenocarcinoma of lung Dx 05/2023 Allergic rhinitis Bifascicular block Chronic anemia Chronic cough Diabetes mellitus, type 2 Ductal carcinoma in situ (DCIS) of left breast Dx 04/2023 History of skin cancer Nose Hx of multiple concussions Most recent ~2015, r/t falls from horse No residual effects from the concussions per patient Multiple pulmonary nodules determined by computed tomography of lung Nocturnal hypoxemia Per records Obstructive sleep apnea CPAP Osteopenia Per records Surgical History History of bronchoscopy 04/2023 History of dilatation and curettage History of hysterectomy removed 1 ovary History of lung biopsy History of oral surgery Hx of bilateral cataract extraction Hx of colonoscopy Port-A-Cath in place (06/24/23) Left Breast Lumpectomy, Left Ambia Lmyph Node Biopsy, Insertion Access Right Internal Jugular Vein Port with Fluoroscopy Slow to wake up after anesthesia Family History Mother Bladder cancer Brother Lung cancer Son Mcginnis sarcoma, Onset Age: 8 Osteosarcoma, Onset Age: 16 Grandmother (Maternal) Cancer Sister H/O thyroidectomy Father Diabetes Social History Smoking Status: Never smoker Second Hand Exposure: No; Do You Dip or Chew Tobacco: No; Tobacco Cessation Education Requested by Patient: No Hx Alcohol Use: Yes Alcohol type: wine and hard liquor Hx Substance Use: No Preferred Language: Uzbek Communication Ability: Effective Motor Vehicle Escort Driver Required: No Beliefs That Will Affect Care: None marital status: / Current Living Situation: Alone Current Living Situation Comment: lives at [facility]; Other Information That Helps Us Care for You: No Feels Safe at Home: Yes Safety Concerns: Feels Safe At This Time Childhood Exposure to Second-Hand Smoke: Yes Assistive Devices: Glasses and Hearing Aid - Bilateral Review of Systems Review of Systems: Unobtainable due to cognitive status Physical Exam Physical Exam: Constitutional: Patient appears to be of their stated age. Patient is in no apparent distress. Patient is well-developed. Eyes: Pupils are equal round and reactive to light. Conjunctivae are normal. Anicteric sclera. Ears nose, mouth and throat: Mallampati class 2. Normal posterior oropharynx. Uvula is midline. Neck: Trachea is midline. Visual inspection is normal. Respiratory: Clear to auscultation bilaterally. No use of accessory muscles. No significant clubbing noted. Cardiovascular: Regular rate and rhythm. No murmurs. No edema. Gastrointestinal: Normal bowel sounds, soft, nontender and nondistended. No hepatosplenomegaly noted. Musculoskeletal: No cyanosis. Patient is able to move all extremities. Strength is 5 out of 5 in the upper and lower extremities. Skin: No rashes, warm dry and intact. Neurologic: Paresis of the left upper extremity. Mild pronator drift of the right upper extremity. Left facial droop noted. Rightward gaze preference. Psychiatric: Alert and oriented x3 with a euthymic affect. Results & Data Results & Data Vital Signs (Past 12 Hours) Vital Signs Temp Pulse Pulse Resp BP BP Pulse Ox 04/10/24 14:41 123 H 13 174/88 H 94 04/10/24 14:38 36.5 C 04/10/24 14:36 117 H 15 92 04/10/24 14:35 141/115 H 04/10/24 14:30 109 H 13 92 04/10/24 14:27 106 H 14 91 04/10/24 14:25 181/129 H 04/10/24 14:02 89 185/119 H 04/10/24 13:41 91 H 14 140/103 H 99 04/10/24 13:35 153/84 H 04/10/24 13:35 153/84 H 04/10/24 13:33 83 17 98 04/10/24 13:30 82 17 98 04/10/24 13:30 142/82 H 04/10/24 13:25 36.3 C L 76 16 140/82 99 04/10/24 13:20 83 14 153/90 H 100 04/10/24 13:15 77 14 98 04/10/24 13:15 04/10/24 13:12 77 14 135/75 99 04/10/24 08:51 04/10/24 08:51 36.8 C 87 18 130/75 96 O2 Del Method FiO2 04/10/24 14:41 Room Air 04/10/24 14:38 04/10/24 14:36 04/10/24 14:35 04/10/24 14:30 04/10/24 14:27 04/10/24 14:25 04/10/24 14:02 04/10/24 13:41 Mechanical Vent 40 04/10/24 13:35 04/10/24 13:35 04/10/24 13:33 04/10/24 13:30 04/10/24 13:30 04/10/24 13:25 Mechanical Vent 40 04/10/24 13:20 Mechanical Vent 40 04/10/24 13:15 40 04/10/24 13:15 Mechanical Vent 04/10/24 13:12 Mechanical Vent 40 04/10/24 08:51 Room Air, CPAP 04/10/24 08:51 Room Air, CPAP Coding Level of Care Code 81352 Prolonged Care (int'l) Diagnoses Acute CVA (cerebrovascular accident) I63.9 Multiple pulmonary nodules determined by computed tomography of lung R91.8 Adenocarcinoma of lung C34.90
[2024-04-10] MEDS ORDERED: PHARMACIST DISCHARGE MED REC CONSULT PRN (15:35)
--- NOTE | 2024-04-10 15:37 | CT Scan Report ---
CT ANGIOGRAM OF THE CHEST CLINICAL HISTORY: Left-sided weakness. Lung cancer. COMPARISON STUDY: Prior chest CT scans, most recently dated 03/26/2024 TECHNIQUE: Following the IV administration of 119 cc of Optiray 320, CT angiogram of the chest is per formed from the upper abdomen to the thoracic inlet using the pulmonary embolus protocol. Images are reviewed in the axial, sagittal, and coronal planes. 3-D MIPS images are created and assessed. IV con trast was administered without complication. A dose lowering technique was utilized adhering to the principles of ALARA. The examination is degraded by motion artifact, as well as by streak artifact fr om the arms which could not be elevated of the chest. FINDINGS: Thyroid: Imaged portions of the thyroid gland are normal in size and attenuation. Thoracic aorta: There is mild atherosclerotic calcification of the thoracic aorta. There is ectasia o f the ascending thoracic aorta which measures up to 3.9 cm diameter. The remainder of the thoracic ao rta is normal in caliber, and the arch demonstrated bovine variant anatomy. No dissection is seen. Pulmonary vasculature: The pulmonary trunk is normal in caliber. There are no filling defects identif ied in the main, lobar, or segmental pulmonary arteries to suggest pulmonary embolus. Heart: A right internal jugular central venous infusion port is in place. The heart is mildly enlarge d and without pericardial effusion. Lungs and pleural spaces: There is postsurgical change and volume loss from left lower lobe resection . Trace pleural fluid is seen at the left lung base. There are numerous (greater than 20) irregular p ulmonary nodules/mass lesions scattered throughout both lungs. A focus of masslike consolidation in t he right upper lobe along the minor fissure seen on image #120 measures up to 7.5 cm. This is unchang ed to modest increased from previous. There are two 2.3 cm right lower lobe lesions seen on images #9 5 and #104. A 2.3 cm lesion at the left lung base is seen on image #63 . Numerous small pulmonary nod ules are new from 03/26/2024. Several of the nodular foci appear to show mild cavitation. Lower neck: A mildly enlarged left supraclavicular node on image #195 measures 1.2 x 0.8 cm. Mediastinum: There are prominent mediastinal lymph nodes. A subcarinal node on image #122 measures 13 mm short axis. High pretracheal nodes measure up to 9 mm short axis. Rain: Clear. Axillae: There is no axillary lymphadenopathy. Upper abdomen: Partially visualized upper abdominal viscera is within normal limits. Skeletal structures: The skeletal structures are osteopenic. There is a mild chronic superior endplat e compression deformity of T3. There are numerous spinal hemangiomas. No lytic or blastic bony lesion s are seen. IMPRESSION: 1. There is no evidence of pulmonary embolus in the main, lobar, or segmental pulmonary arteries. 2. Cardiomegaly and emphysema with postsurgical change from left lower lobe resection. 3. Again seen are numerous (greater than 20) irregular pulmonary nodules/mass-like opacities scattere d throughout both lungs as above. Numerous subcentimeter lesions are new as compared to 03/26/2024. Al though some of these could potentially be on an infectious/inflammatory basis, the appearance is much more suggestive of progressive multifocal pulmonary metastatic disease. 4. There is a mildly enlarged left supraclavicular node, as well as prominent mediastinal nodes. Thes e are pathologically indeterminate but suspicious. 5. Trace pleural fluid is seen in the left lung base. 6. Additional findings as above. ACT 112: Negative or not required by law. Electronically signed by: Junaid Franklin M.D. 04/10/2024 3:36 PM
[2024-04-10] MEDS: GADOBUTROL 65ML VIAL IV ONE (16:51)
--- NOTE | 2024-04-10 17:31 | Magnetic Resonance Report ---
MR brain wo/w con HISTORY: 78 years-old Female MCA stroke, metatstatic cancer acute strokelike symptoms COMPARISON: CTA head of same day, brain MRI 06/03/2023 TECHNIQUE: Multiplanar multisequence MRI of the brain was obtained with and without IV contrast. FINDINGS: Motion degraded exam. No restricted diffusion. There is no mass, hematoma, midline shift, or acute in farct. The paranasal sinuses are clear. The mastoid air cells are clear. The ventricles and sulci dem onstrate mild age-related involutional changes. Scattered foci of T2 hyperintensity seen within the p eriventricular and subcortical white matter are nonspecific but suggestive of mild microvascular isch emic changes. The major vascular flow voids at the skull base are well-maintained. Prior bilateral le ns replacement. Postcontrast sequences show no areas of abnormal enhancement. IMPRESSION: 1. Motion degraded exam. No acute or subacute infarct. 2. No abnormal enhancement to suggest metastatic disease. 3. Involutional changes with chronic microvascular ischemic disease. ACT 112: Negative or not required by law. The above report was generated using voice recognition software. It may contain grammatical, syntax o r spelling errors. Electronically signed by: Rohith Benitez M.D. 04/10/2024 5:29 PM
[2024-04-10] MEDS: LABETALOL HCL IV 5 MG/ML 20ML IV STA (18:57)
[2024-04-10] MEDS: LACTATED RINGER'S 1,000 ML IV SCH (21:00)
[2024-04-11] MEDS: ACETAMINOPHEN 1,000 MG/100 ML VIAL IV PRN (01:30)
[2024-04-11] MEDS ORDERED: HEPARIN 100 UNIT/ML 5ML FLUSH FLUSH PRN (03:24)
[2024-04-11 05:12] LABS: Basophils # (auto) 0.02 K/uL (0.00-0.20); Basophils % (auto) 0.2 %; Eosinophils # (auto) 0.05 K/uL (0.00-0.50); Eosinophils % (auto) 0.5 %; Hematocrit (blood only) 30.2 % (37.0-47.0); Hemoglobin 10.2 g/dl (12.0-16.0); Immature Granulocytes # (auto) 0.04 K/uL (0.01-0.20); Immature Granulocytes % (auto) 0.4 %; Mean Corpuscular Hemoglobin 29.7 pg (25.0-34.0); Mean Corpuscular Hgb Conc 33.8 g/dL (32.0-36.0); Mean Corpuscular Volume 87.8 fL (80.0-100.0); Mean Platelet Volume 8.6 fL (9.4-12.4); Monocytes # (auto) 0.95 K/uL (0.11-0.59); Monocytes % (auto) 10.2 %; Neutrophils # (auto) 6.89 K/uL (1.40-6.50); Neutrophils % (auto) 73.7 %; Platelet Count 376 K/uL (130-400); RDW Coefficient of Variation 13.5 % (11.5-14.5); RDW Standard Deviation 43.1 fL (36.4-46.3); Red Blood Count 3.44 M/uL (4.20-5.40); White Blood Count 9.35 K/ul (4.8-10.8)
[2024-04-11 05:24] LABS: BUN Creatinine Ratio 17.1 (10-20); Calcium 8.5 mg/dl (8.6-10.3); Chol HDL Ratio 2.1 (0-5); Creatinine Clr Calc Pharmacy 66.8 ml/min; Magnesium 1.8 mg/dl (1.7-2.4); Phosphorus 3.8 mg/dl (2.5-4.9); Potassium 3.4 mmol/L (3.5-5.1)
[2024-04-11 05:31] LABS: Troponin I High Sensitivity 30.3 pg/ml (0-14)
[2024-04-11] MEDS: POTASSIUM CHLORIDE / WTR 10 MEQ/100 ML PLCT IV SCH (05:44)
[2024-04-11] MEDS: MAGNESIUM SULFATE / D5W 1 GM/100 ML BAG IV SCH (05:44)
--- NOTE | 2024-04-11 06:36 | Electroencephalogram ---
EEG Procedure Note Date of Service April 11, 2024 Start / End Times Start Time: 2033 End Time: [address] Amaral History 78 year old with encephalopathy Home Medication List Medication Instructions Recorded Confirmed Type multivitamin 1 tab PO QAM 04/22/19 04/10/24 History turmeric 1 tab PO HS 07/28/21 04/10/24 History cholecalciferol (vitamin D3) 125 125 mcg PO QAM 04/26/23 04/10/24 History mcg (5,000 unit) tablet (Vitamin D3) simethicone 62.5 mg oral strips 2 strip PO BID PRN Abdominal 06/01/23 04/10/24 History (Gas-X) Discomfort metformin 1,000 mg tablet 1,500 mg PO BID 12/05/23 04/10/24 History cetirizine 10 mg capsule 10 mg PO DAILY 04/10/24 04/10/24 History Inpatient Medication List Nicardipine HCl 25 mg/ Sodium (Chloride) 250 mls @ 0 mls/hr IV .Q0M KAVEH; Protocol Stop: 05/10/24 13:59 Last Admin: 04/11/24 05:38 Dose: Not Given Documented By: Admin: 04/11/24 00:16 Dose: Not Given Documented By: Admin: 04/10/24 17:39 Dose: Not Given Documented By: Titration: 04/10/24 16:30 Dose: 0 mg/hr, 0 mls/hr Documented By: Admin: 04/10/24 14:27 Dose: 5 mg/hr, 50 mls/hr Documented By: ROYER Co-signed By: REINALDO Lactated Ringer's (Lr) 1,000 mls @ 50 mls/hr IV .Q20H KAVEH Stop: 04/12/24 01:29 Last Infusion: 04/11/24 05:52 Dose: 0 mls/hr Documented By: Admin: 04/11/24 05:43 Dose: 50 mls/hr Documented By: Infusion: 04/11/24 05:43 Dose: Infused Documented By: Admin: 04/10/24 21:00 Dose: 50 mls/hr Documented By: TRINH Acetaminophen (Ofirmev) 1,000 mg in 100 mls @ 400 mls/hr IV Q8H PRN PRN Reason: Pain Stop: 04/14/24 01:16 Last Infusion: 04/11/24 01:45 Dose: Infused Documented By: Admin: 04/11/24 01:30 Dose: 400 mls/hr Documented By: TRINH Magnesium Sulfate/Dextrose (Magnesium Sulfate / D5w) 1 gm in 100 mls @ 50 mls/hr IV Q2H KAVEH Stop: 04/11/24 09:44 Last Admin: 04/11/24 05:44 Dose: 50 mls/hr Documented By: TRINH Potassium Chloride (K Jace / Wtr) 10 meq in 100 mls @ 100 mls/hr IV Q1H KAVEH Stop: 04/11/24 09:44 Last Admin: 04/11/24 05:44 Dose: 100 mls/hr Documented By: TRINH Miscellaneous (Icu Protocol For Hyperglycemia) 1 each N/A Q6 [facility] Stop: 04/12/24 17:59 Last Admin: 04/11/24 05:38 Dose: Not Given Documented By: Admin: 04/11/24 00:15 Dose: Not Given Documented By: Admin: 04/10/24 14:33 Dose: Not Given Documented By: ROYER Discontinued Medications Gadobutrol (Gadobutrol 65ml Vial) 7 ml IV ONCE ONE Stop: 04/10/24 16:51 Last Admin: 04/10/24 16:51 Dose: 7 ml Documented By: JEROME Lactated Ringer's (Lr) 1,000 mls @ 15 mls/hr IV .Q24H KAVEH Stop: 04/11/24 05:59 Last Admin: 04/10/24 14:32 Dose: Not Given Documented By: ROYER Ioversol (Optiray 320 125ml) 119 ml IV ONCE ONE Stop: 04/10/24 14:18 Last Admin: 04/10/24 14:18 Dose: 119 ml Documented By: ODELL Labetalol HCl (Labetalol Hcl Iv 5 Mg/Ml 20ml) Confirm Administered Dose 5 mg IV .STK-MED ONE Stop: 04/10/24 13:59 Last Admin: 04/10/24 14:02 Dose: 5 mg Documented By: ROYER Labetalol HCl (Labetalol Hcl Iv 5 Mg/Ml 20ml) 5 mg IV NOW STA Stop: 04/10/24 18:42 Last Admin: 04/10/24 18:57 Dose: Not Given Documented By: ES Description This is a 21 electrode EEG with a single channel dedicated to limited EKG. The electrodes were placed in accordance with the International 10-20 system. Interpretation The predominant background activity consists of an fairly regular 7 Hz activity, of up to 40 mV in amplitude,seen symmetrically distributed over the posterior head regions bilaterally. This activity has little attenuation with eye-opening and other alerting procedures. Photic stimulation was performed and elicited no change in the background activity and no abnormal responses were seen. Hyperventilation was not performed. A mild amount of muscle and movement artifact activity contaminated the recording, yet did not hinder interpretation to any significant degree. Throughout the later two thirds of the recording, there was medium amplitude slower activity around 3-5 Hz, diffusel, which was persistent. Throughout the recording, no focal abnormalities or potentially epileptogenic discharges were seen. In summary, this EEG showed moderate generalized slowing for large portions of the recording. Given the regular 7 Hz activity in the beginning, I suspect prolonged drowsiness as opposed to pathology. Therefore, during the recording I suspect only mild generalized cerebral dysrhythmia. No focal abnormalities, potentially epileptogenic discharges, or abnormal slow activity was seen. Clinical Correlation The absence of potentially epileptogenic activity does not exclude a seizure disorder, since interictally, EEGs can be normal. The mild general slowing is consistent with a mild encephalopathy, which could be due to a wide variety of causes. Clinical correlation is required. [facility] Procedure Codes Indication for Procedure (1) Acute encephalopathy: Neurology Neurology: 90847 EEG include record awake & drowsy
[2024-04-11 07:04] LABS: Estimated Average Glucose 128 mg/dl; Hemoglobin A1C 6.1 % (4.5-5.6)
--- NOTE | 2024-04-11 09:00 | Neurology Consultation ---
Date of Consultation April 11, 2024 Assessment & Plan (1) TIA (transient ischemic attack): (2) Stroke-like symptoms: Plan Patient had a major neurologic event towards the end of a bronchoscopy procedure on April 10 which seem to include left hemiplegia, left hemisensory deficit and neglect, eye deviation to the right, probable left homonymous hemianopsia, and some mild encephalopathy. The etiology of this event is likely due to decreased perfusion/vasospasm involving middle cerebral artery territory on the right. I would classify it as a prolonged TIA (reversible ischemic neurologic deficit). She has markedly improved clinically today and only has some mild weakness in the left upper extremity, some residual visual field deficits off to the left, and some clumsiness in the left hand and foot. Her sensorium is clear and there are no other focal deficits, meningeal signs, or encephalopathy. MRI of the brain showed no acute stroke. There was minimal old small vessel ischemic disease. CT angiography of the head and neck showed no vascular anomalies or stenoses. Echocardiogram was largely unremarkable. She has no history of hypertension, diabetes, or dyslipidemia, and she has no history of tobacco use. Therefore, she is at very little risk for further stroke and this event was due to the procedure causing vascular issues. I suspect she will continue to make improvements back to baseline over the next 24 to 48 hours. Recommendations: 1. Increase activity as able and continue with physical, occupational, and speech therapy 2. There is no need for antiplatelet or anticoagulant medication in this patient. 3. Given her history of lung cancer and lung nodules she would be at increased bleeding risk with anticoagulants and antiplatelet medication. Final path from bronchoscopy is pending 4. Otherwise follow-up with pulmonary medicine and hematology/oncology. 5. I have no further neurologic testing or treatment recommendations to make at this time Overall, I spent a total of 120 minutes with this case including review of re cords, review of MRI films, direct evaluation the patient at bedside, report generation, and discussion of the case with the patient and RN at bedside, and Billy Pierre PA-C. History of Present Illness Reason for Consultation: Patient is a 78-year-old, who I was asked to see at the request of Dr. Amaral, for neurologic consultation regarding strokelike symptoms. Requesting Physician: Dr. 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 She received chemotherapy over the next month with cisplatin, nivolumab and pemetrexed. She then completed 5130CGY to the left breast by November 2023. In September 2023 she underwent left lower lobectomy and lymphadenectomy for stage III adenocarcinoma of the lung. CT scan of the chest March 26, 2024 showed postop changes from the left lower lobe resection and greater than 20 irregular pulmonary nodular/masslike opacities scattered throughout both lungs. The largest focus is in the right upper lobe and there is a mildly enlarged left supraclavicular node. There were prominent mediastinal nodes. The patient apparently had a recent PET scan which showed no metastases anywhere else. She has been on Opdivo. She is followed by heme-onc. There was concern that the CT scan of the chest nodules could be inflammatory as opposed to metastatic disease. Therefore, she was to undergo bronchoscopy for biopsy which was performed April 10. Towards the end of the procedure the patient became bradycardic and hypotensive. Medications were given to counteract this. There was concerned that her left side was not moving and there were EKG changes. A stroke alert was called. Echocardiogram showed some mild LVH and mild aortic regurg but was otherwise unremarkable. CT scan of the head showed a questionable right basal ganglia hypodensity (noted by the teleneurologist and not the radiologist), and CT angiography of the head and the neck were unremarkable without any vascular stenoses or anomalies. CTA of the chest showed no pulmonary emboli. CBC showed mild anemia and CHEM profile was unremarkable except for glucose of 147. Troponins were elevated. The patient had an NIH stroke scale of approximately 27 yesterday. She had left-sided plegia, left-sided sensory deficit, right gaze deviation and neglect of the left side and probable left homonymous hemianopsia. She was confused but there was no obvious speech deficit noted. MRI of the brain with and without contrast showed no acute stroke. There were no metastases. There was minimal/mild old small vessel ischemic disease only. I reviewed these films. EEG done last evening showed a somewhat regular 7 Hz activity as background with no further activation during drowsiness. There were no focal abnormalities and no potentially epileptogenic discharges were seen. The EEG changes were consistent with mild encephalopathy. This morning the patient is markedly better according to nursing. She is moving her left side better and is seeing better. She is not confused and is pleasant and cooperative. The patient herself denies headache or pain. She has no vision issues or dizziness. She knows that her left arm is weak but does not think anything is numb. Laboratory studies were largely unremarkable this morning including CBC and CHEM profile. Hemoglobin A1c was 6.1, triglycerides 83, and total cholesterol 150. Troponin was elevated at 30. Allergies Allergy/AdvReac Type Severity Reaction Status Date / Time house dust Allergy Mild Sinus Verified 04/10/24 08:49 symptoms iodine Allergy Mild Rash Verified 04/10/24 08:49 pneumococcal vaccine Allergy Unknown Rash Verified 04/10/24 08:49 Home Medications Medication Instructions Recorded Confirmed Type multivitamin 1 tab PO QAM 04/22/19 04/10/24 History turmeric 1 tab PO HS 07/28/21 04/10/24 History cholecalciferol (vitamin D3) 125 125 mcg PO QAM 04/26/23 04/10/24 History mcg (5,000 unit) tablet (Vitamin D3) simethicone 62.5 mg oral strips 2 strip PO BID PRN Abdominal 06/01/23 04/10/24 History (Gas-X) Discomfort metformin 1,000 mg tablet 1,500 mg PO BID 12/05/23 04/10/24 History cetirizine 10 mg capsule 10 mg PO DAILY 04/10/24 04/10/24 History Patient History Medical History Chronic anemia Multiple pulmonary nodules determined by computed tomography of lung Allergic rhinitis Obstructive sleep apnea CPAP Nocturnal hypoxemia Per records Osteopenia Per records Diabetes mellitus, type 2 History of skin cancer Nose Bifascicular block Adenocarcinoma of lung Dx 05/2023 Chronic cough Ductal carcinoma in situ (DCIS) of left breast Dx 04/2023 Hx of multiple concussions Most recent ~2015, r/t falls from horse No residual effects from the concussions per patient Surgical History Slow to wake up after anesthesia Port-A-Cath in place (06/24/23) Left Breast Lumpectomy, Left [facility] Node Biopsy, Insertion Access Right Internal Jugular Vein Port with Fluoroscopy History of lung biopsy History of bronchoscopy 04/2023 Hx of bilateral cataract extraction Hx of colonoscopy History of oral surgery History of hysterectomy removed 1 ovary History of dilatation and curettage Family History Mother , age 102 Bladder cancer Brother Lung cancer Son Mcginnis sarcoma, Onset Age: 8 Osteosarcoma, Onset Age: 16 Grandmother (Maternal) Cancer Sister H/O thyroidectomy Father , age 79 Diabetes Social History Smoking Status: Never smoker Second Hand Exposure: No; Do You Dip or Chew Tobacco: No; Hx Alcohol Use: Yes Alcohol type: wine and hard liquor Alcohol Intake Frequency: 4 or More x per/Week Alcohol Intake Frequency Comment: Averages 1 to 2 glasses of wine per day Hx Substance Use: No Preferred Language: Indonesian Communication Ability: Effective Supplier Diversity Director Required: No Beliefs That Will Affect Care: None marital status: / Current Living Situation: Alone Current Living Situation Comment: lives at [facility]; current occupational status: retired 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 Feels Safe at Home: Yes Childhood Exposure to Second-Hand Smoke: Yes Assistive Devices: Glasses and Hearing Aid - Bilateral Review of Systems Constitutional: + fatigue; no fever and no weakness Eyes: no diplopia, no eye pain and no worsening vision Ear, Nose, Mouth, Throat: no ear pain, no tinnitus, no hearing loss, no dizziness, no snoring, no hoarseness and no dysphagia Respiratory: no cough and no dyspnea Cardiovascular: no chest pain, no palpitations and no lightheadedness Gastrointestinal: no abdominal pain, no nausea and no vomiting Genitourinary: no dysuria, no urinary frequency and no urinary incontinence Musculoskeletal: no back pain, no neck pain, no radicular pain, no joint pain and no myalgia Integumentary: no rash and no lesions Neurologic: + localized weakness; no gait abnormalit y, no generalized weakness, no tingling, no numbness, no tremor(s), no abnormal movements, no headache(s), no abnormal speech, no confusion and no memory loss Psychiatric: no depression, no irritability, no anxiety, no difficulty c oncentrating, no confusion and no hallucinations Endocrine: no fatigue and no flushing Hematologic / Lymphatic: no easy bleeding and no easy bruising Allergy / Immunological: no urticaria and no problem reported Exam (Neuro) Physical Exam: The patient is right-handed. The patient is awake, alert, and attentive. Speech is normal without any aphasia or dysarthria. Mentation and thought processes are intact, with full orien tation and normal fund of knowledge. Mood and affect are normal and appropriate. Appearance and grooming are normal. Short and long-term memory are intact to conversation. Pupils are 4 mm bilaterally and reactive to light. Extraocular eye muscles are intact without nystagmus. Visual acuity and visual diaz seem normal grossly to confrontation, however, there may be some decrease visual field off to the left involving about 20 to 30 degrees. Her exam was somewhat inconsistent. There are no deficits to sensation in the face in all 3 distributions of the fifth cranial nerve bilaterally. Corneal reflexes are positive bilaterally. Facial strength and symmetry was normal bilaterally. Hearing seems intact grossly to voice and finger rub bilaterally. Palate moves well without asymmetry. There is normal sternocleidomastoid and trapezius strength bilaterally. Tongue is midline with good strength bilaterally. Neck has a full range of motion without discomfort. Cervical, thoracic, and lumbar spine are nontender to palpation. Gait was not tested but stance sitting up in bed with feet dangling was reasonable although she did lean a bit towards the right and backwards. With outstretched arms there was significant drift on the left. There are no resting, postural, or action tremors. There is no ataxia with finger to nose testing, or [id number] testing. There is significant decreased facility in the left hand.. No other abnormal involuntary movements are noted. Motor strength is 5/5 diffusely in the right upper extremity including deltoids, biceps, triceps, brachioradialis, wrist flexors and extensors, surgical corsetier, and intrinsic hand muscles. Motor strength is 4/5 diffusely in the same muscles in the left upper extremity. Motor strength is 5/5 diffusely in the right lower extremity, including hip flexors, quadriceps, hamstrings, gastrocnemius, tibialis anterior, tibialis posterior, and Peroneii muscles bilaterally. Motor strength is close to 5/5 diffusely in the left lower extremity with the same muscles, however, there is clumsiness in the foot. Toe extensors are normal and there is good bulk in the extensor digitorum brevis muscles bilaterally. The limbs have good tone without rigidity or spasticity. There is no atrophy noted in the muscles. Muscle bulk is normal, there is no tenderness to palpation, no myotonia to percussion, and no fasciculations seen. Sensory examination reveals no obvious deficits to pin and touch in all 4 limbs diffusely and there is no neglect with double simultaneous stimulation. Reflexes are 2/4 in the biceps, triceps, brachioradialis, and quadriceps tendons bilaterally. Achilles tendon reflexes are 1/4 bilaterally. Toes are downgoing with plantar stimulation bilaterally. Peripheral pulses are present and of normal quality distally in all 4 limbs. There is no peripheral edema noted in the limbs. Results & Data Vital Signs (Past 12 Hours) Vital Signs Temp Pulse Resp BP Pulse Ox O2 Del Method O2 Flow Rate 04/11/24 05:30 86 24 93 04/11/24 05:30 129/55 L 04/11/24 05:06 82 17 94 04/11/24 05:00 123/62 04/11/24 04:57 81 9 L 94 04/11/24 04:30 75 7 L 95 04/11/24 04:30 112/54 L 04/11/24 04:30 112/54 L 04/11/24 04:30 37.0 C 112/54 L 04/11/24 04:03 73 15 94 04/11/24 04:00 110/63 04/11/24 03:45 68 14 91 04/11/24 03:33 78 2 L 94 04/11/24 03:30 111/64 04/11/24 03:30 111/64 04/11/24 03:00 82 17 93 04/11/24 03:00 121/67 04/11/24 02:48 84 14 94 04/11/24 02:30 122/71 04/11/24 02:30 122/71 04/11/24 01:54 79 19 92 04/11/24 01:33 85 10 L 94 04/11/24 01:30 121/66 04/11/24 01:30 121/04/11/24 01:27 91 H 17 95 04/11/24 01:24 95 H 17 94 04/11/24 01:00 122/68 04/11/24 01:00 122/68 04/11/24 00:45 92 H 15 96 04/11/24 00:30 124/66 04/11/24 00:30 124/66 04/11/24 00:30 124/66 04/11/24 00:30 93 H 21 96 Nasal Cannula 2 04/11/24 00:00 119/66 04/10/24 23:42 77 16 93 04/10/24 23:39 80 04/10/24 23:33 81 15 96 04/10/24 23:30 125/61 04/10/24 23:12 84 16 93 04/10/24 23:00 125/76 04/10/24 23:00 125/76 04/10/24 23:00 125/76 04/10/24 23:00 125/76 04/10/24 23:00 36.9 C 125/76 04/10/24 23:00 91 H 20 95 04/10/24 22:44 18 94 Room Air 04/10/24 22:39 96 H 26 H 93 04/10/24 22:00 102 H 22 92 04/10/24 22:00 130/72 04/10/24 22:00 130/72 04/10/24 21:33 102 H 14 94 04/10/24 21:30 125/78 04/10/24 21:30 125/78 04/10/24 21:24 95 H 19 94 04/10/24 21:09 90 17 93 04/10/24 21:00 118/64 04/10/24 21:00 118/64 04/10/24 20:57 89 21 95 04/10/24 20:45 83 17 92 PG Care Time/CCT Total # of Minutes Spent Total Time Spent with Patient: Total time spent is greater than 50% in coordination of care (as documented) at patient's floor/unit and/or counseling patient: Coding Level of Care Code 96307 INT INP/OBS CARE 3/75MIN Diagnoses TIA (transient ischemic attack) G45.9 Stroke-like symptoms R29.90 Time Spent (min) 120
[2024-04-11 09:57] LABS: Phosphorus 3.9 mg/dl (2.5-4.9)
[2024-04-11] MEDS ORDERED: GLUCOSE 10 TAB/TUBE PO PRN (10:00)
[2024-04-11] MEDS ORDERED: GLUCAGON FOR INJ 1 MG VIAL SQ PRN (10:00)
[2024-04-11] MEDS ORDERED: GLUCOSE 40% GEL 15 GM TUBE PO PRN (10:00)
[2024-04-11] MEDS ORDERED: DEXTROSE 50% 50 ML SYRINGE IV PRN (10:00)
[2024-04-11] MEDS ORDERED: CARBOHYDRATES FOR HYPOGLYCEMIA PO PRN (10:00)
[2024-04-11] MEDS: INSULIN ASPART PER UNIT CHARGE SC SCH (12:24)
--- NOTE | 2024-04-11 15:06 | Critical Care Progress Note ---
Date of Service April 11, 2024 Assessment & Plan (1) Acute CVA (cerebrovascular accident): (2) Multiple pulmonary nodules determined by computed tomography of lung: (3) Adenocarcinoma of lung: Plan 78-year-old female with a history of stage III lung CA (adenocarcinoma status post lobectomy and immunotherapy), DCIS of the breast status postlumpectomy and radiation and allergic rhinitis presenting to the ICU due to concerns of a right MCA infarct. Neurologic: MRI brain without evidence of stroke. Patient likely had a TIA. Appreciate neurology input. Will hold on antiplatelet therapy per neurology input. Will start Lovenox for DVT prophylaxis. EEG with evidence of mild encephalopathy which appears to be largely resolved today. Continue with PT and OT. Patient likely hypercoagulable due to active malignancy. Pulmonary: Minimal oxygen requirements at this present time. CT chest findings highly concerning for recurrent metastatic lung cancer. Right upper lobe biopsy specimens today and rapid pathological evaluation were indicating material suspicious for possible malignancy. Final pathology is pending. Patient currently on immunotherapy which is going to be on hold at this time while inpatient. Cardiovascular: Patient with ST segment elevations during procedure, but these quickly improved. Troponin was minimally elevated likely related to the anesthesia and procedure itself. No signs of ischemia on echocardiogram. Echocardiogram is largely unremarkable. Gastrointestinal: Regular diet. Renal: No significant issues at present. Follow urine output closely. Infectious disease: No signs of infectious etiology at this present time. Hematologic: Patient with mild anemia likely related to chronic disease. She is likely hypercoagulable related to her active malignancy. Start Lovenox 40 mg daily. Endocrine: Maintain euglycemia. Lines and tubes: Peripheral IVs and Leslie catheter in place VTE prophylaxis: SCD, Lovenox CODE STATUS: Full code Disposition: ICU Admission and Anticipated Discharge Date Admission Date: April 10, 2024 Subjective Patient significantly improved on exam today. Left arm weakness has substantially improved. Speech is also improved. Patient denies any shortness of breath or chest pain. Appreciate neurology input who feels that she likely had a significant TIA. Review of Systems Review of Systems: All systems reviewed & are unremarkable except as noted in HPI & below Physical Exam Physical Exam: Constitutional: Patient appears to be of their stated age. Patient is in no apparent distress. Patient is well-developed. Eyes: Pupils are equal round and reactive to light. Conjunctivae are normal. Anicteric sclera. Ears nose, mouth and throat: Mallampati class 2. Normal posterior oropharynx. Uvula is midline. Neck: Trachea is midline. Visual inspection is normal. Respiratory: Clear to auscultation bilaterally. No use of accessory muscles. No significant clubbing noted. Cardiovascular: Regular rate and rhythm. No murmurs. No edema. Gastrointestinal: Normal bowel sounds, soft, nontender and nondistended. No hepatosplenomegaly noted. Musculoskeletal: No cyanosis. Patient is able to move all extremities. Strength is 5 out of 5 in the upper and lower extremities. Skin: No rashes, warm dry and intact. Neurologic: 4 out of of 5 strength in the left upper extremity. 5 out of 5 s trength in the right upper extremity. Minimal dysarthria. Psychiatric: Alert and oriented x3 with a euthymic affect. Results & Data Results & Data Vital Signs (Past 12 Hours) Vital Signs Temp Pulse Pulse Resp BP BP Pulse Ox 04/11/24 12:03 79 19 97 04/11/24 12:00 117/63 04/11/24 11:57 81 21 97 04/11/24 11:00 74 20 96 04/11/24 11:00 135/82 04/11/24 10:00 66 15 94 04/11/24 10:00 109/58 L 04/11/24 09:06 72 17 92 04/11/24 09:01 92/65 L 04/11/24 08:52 143/65 H 04/11/24 08:51 69 16 93 04/11/24 08:21 143/80 H 04/11/24 08:15 77 23 93 04/11/24 08:00 128/73 04/11/24 08:00 81 13 95 04/11/24 08:00 04/11/24 08:00 36.6 C 73 16 143/80 H 94 04/11/24 05:30 86 24 93 04/11/24 05:30 129/55 L 04/11/24 05:06 82 17 94 04/11/24 05:00 123/62 04/11/24 04:57 81 9 L 94 04/11/24 04:30 75 7 L 95 04/11/24 04:30 112/54 L 04/11/24 04:30 112/54 L 04/11/24 04:30 37.0 C 112/54 L 04/11/24 04:03 73 15 94 04/11/24 04:00 110/63 04/11/24 03:45 68 14 91 04/11/24 03:33 78 2 L 94 04/11/24 03:30 111/64 04/11/24 03:30 111/64 O2 Del Method 04/11/24 12:03 04/11/24 12:00 04/11/24 11:57 04/11/24 11:00 04/11/24 11:00 04/11/24 10:00 04/11/24 10:00 04/11/24 09:06 04/11/24 09:01 04/11/24 08:52 04/11/24 08:51 04/11/24 08:21 04/11/24 08:15 04/11/24 08:00 04/11/24 08:00 04/11/24 08:00 Room Air 04/11/24 08:00 Room Air 04/11/24 05:30 04/11/24 05:30 04/11/24 05:06 04/11/24 05:00 04/11/24 04:57 04/11/24 04:30 04/11/24 04:30 04/11/24 04:30 04/11/24 04:30 04/11/24 04:03 04/11/24 04:00 04/11/24 03:45 04/11/24 03:33 04/11/24 03:30 04/11/24 03:30 Coding Level of Care Code 92172 SUB INP/OBS CARE 235MIN Diagnoses Acute CVA (cerebrovascular accident) I63.9 Multiple pulmonary nodules determined by computed tomography of lung R91.8 Adenocarcinoma of lung C34.90
[2024-04-11] MEDS: ENOXAPARIN INJ 40 MG/0.4 ML SYR SQ SCH (18:04)
--- NOTE | 2024-04-11 18:08 | Hospitalist Progress Note ---
Date of Service April 11, 2024 Assessment & Plan (1) TIA (transient ischemic attack): Plan: Last known well 10:45am, s/p bronchoscopy Stroke alert called in the ICU, not TNK candidate due to biopsies taken in bronchoscopy Left sided hemiparesis ?neglect, expressive dysphasia all noted at that time CTA head and neck negative MRI brain with and without contrast negative Consult neurology appreciated-likely vasospasm and prolonged TIA-now improving all-around No need for antiplatelet or high intensity statin as this is not something caused other than vasospasm likely from the procedure and medications. Continue supportive care, PT/OT, speech therapy Blood pressure control-weaned off nicardipine and blood pressures are stable (2) Hypokalemia: Plan: Replaced with IV potassium chloride Follow BMP (3) Adenocarcinoma of lung: Plan: Has a history of such. Just underwent biopsies and awaiting pathology Pulmonology management appreciated (4) Diabetes mellitus, type 2: Plan: Mild, hemoglobin A1c well-controlled at 6.1% Insulin as needed Plan VTE Prophylaxis -SCDs Disposition -continued stay in ICU Admission and Anticipated Discharge Date Admission Date: April 10, 2024 Subjective Patient has improving strength in left side today. Denies pain. Is eating more as per her sister for dinner than lunch. I discussed her care with pulmonology/ICU Tele with NSR Physical Exam Constitutional: WD/WN, vitals as above Respiratory: normal respiratory effort; no cough Auscultation: + diminished lung sounds (Left base); no crackles and no wheezes Cardiovascular: RRR, no murmur, no edema Gastrointestinal (Abdomen): normal bowel sounds, soft, nontender, no hepatosplenomegaly Neurologic: CN's II-XI intact bilaterally and + focal motor deficit (4/5 strength throughout LUE, 5/5 otherwise); not confused Psychiatric: A+Ox3, euthymic affect Results & Data Results & Data Vital Signs (Past 12 Hours) Vital Signs Temp Pulse Pulse Resp BP BP Pulse Ox 04/11/24 15:00 60 13 98 04/11/24 15:00 119/66 04/11/24 14:00 69 19 95 04/11/24 14:00 136/75 04/11/24 13:44 123/73 04/11/24 13:39 63 18 95 04/11/24 13:03 72 15 94 04/11/24 13:01 137/76 04/11/24 12:45 81 23 94 04/11/24 12:03 79 19 97 04/11/24 12:00 117/63 04/11/24 11:57 81 21 97 04/11/24 11:00 74 20 96 04/11/24 11:00 135/82 04/11/24 10:00 66 15 94 04/11/24 10:00 109/58 L 04/11/24 09:06 72 17 92 04/11/24 09:01 92/65 L 04/11/24 08:52 143/65 H 04/11/24 08:51 69 16 93 04/11/24 08:21 143/80 H 04/11/24 08:15 77 23 93 04/11/24 08:00 128/73 04/11/24 08:00 81 13 95 04/11/24 08:00 04/11/24 08:00 36.6 C 73 16 143/80 H 94 O2 Del Method 04/11/24 15:00 04/11/24 15:00 04/11/24 14:00 04/11/24 14:00 04/11/24 13:44 04/11/24 13:39 04/11/24 13:03 04/11/24 13:01 04/11/24 12:45 04/11/24 12:03 04/11/24 12:00 04/11/24 11:57 04/11/24 11:00 04/11/24 11:00 04/11/24 10:00 04/11/24 10:00 04/11/24 09:06 04/11/24 09:01 04/11/24 08:52 04/11/24 08:51 04/11/24 08:21 04/11/24 08:15 04/11/24 08:00 04/11/24 08:00 04/11/24 08:00 Room Air 04/11/24 08:00 Room Air Laboratory Results CBC, BMP, magnesium, troponin, lipid panel, hemoglobin A1c reviewed Diagnostic Findings EEG-with mild encephalopathy PG Care Time/CCT Total # of Minutes Spent Total Time Spent with Patient: Total time spent is greater than 50% in coordination of care (as documented) at patient's floor/unit and/or counseling patient: Coding Level of Care Code 95323 SUB INP/OBS CARE MIN Diagnoses TIA (transient ischemic attack) G45.9 Hypokalemia E87.6 Adenocarcinoma of lung C34.90 Diabetes mellitus, type 2 E11.9
[2024-04-11] MEDS ORDERED: Nursing to Pharmacy Communication SCH (18:30)
[2024-04-12 05:34] LABS: Basophils # (auto) 0.05 K/uL (0.00-0.20); Basophils % (auto) 0.9 %; Eosinophils # (auto) 0.21 K/uL (0.00-0.50); Eosinophils % (auto) 3.7 %; Hematocrit (blood only) 30.8 % (37.0-47.0); Hemoglobin 10.3 g/dl (12.0-16.0); Immature Granulocytes # (auto) 0.02 K/uL (0.01-0.20); Immature Granulocytes % (auto) 0.4 %; Lymphocytes # (auto) 1.38 K/uL (1.20-3.40); Lymphocytes % (auto) 24.3 %; Mean Corpuscular Hemoglobin 29.5 pg (25.0-34.0); Mean Corpuscular Hgb Conc 33.4 g/dL (32.0-36.0); Mean Corpuscular Volume 88.3 fL (80.0-100.0); Mean Platelet Volume 8.4 fL (9.4-12.4); Monocytes # (auto) 0.67 K/uL (0.11-0.59); Monocytes % (auto) 11.8 %; Neutrophils # (auto) 3.36 K/uL (1.40-6.50); Neutrophils % (auto) 58.9 %; Platelet Count 336 K/uL (130-400); RDW Coefficient of Variation 13.5 % (11.5-14.5); Red Blood Count 3.49 M/uL (4.20-5.40); White Blood Count 5.69 K/ul (4.8-10.8)
[2024-04-12 05:52] LABS: BUN Creatinine Ratio 16.7 (10-20); Calcium 8.6 mg/dl (8.6-10.3)
[2024-04-12 05:57] VITALS: TEMP 98.6
--- NOTE | 2024-04-12 10:02 | Critical Care Progress Note ---
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 Neurologic: MRI brain without evidence of stroke. Patient likely had a TIA. Appreciate neurology input. Will hold on antiplatelet therapy per neurology input. EEG with evidence of mild encephalopathy which appears to be largely resolved. Continue with PT and OT. Patient likely hypercoagulable due to active malignancy. Pulmonary: No oxygen requirements. Biopsy results discussed with the patient and her sister 04/11/2024. She has stage IV lung cancer. I also discussed this with her oncologist who is an appointment with her next week as an outpatient. Cardiovascular: Patient with ST segment elevations during procedure, but these quickly improved. Troponin was minimally elevated likely related to the anesthesia and procedure itself. No signs of ischemia on echocardiogram. Echocardiogram is largely unremarkable. Gastrointestinal: Regular diet. Renal: No significant issues at present. Leslie catheter removed. Patient with hematuria status post Lovenox yesterday. Will continue to monitor urine output. Possibly traumatic Leslie. Infectious disease: No signs of infectious etiology at this present time. Hematologic: Patient with mild anemia likely related to chronic disease. She is likely hypercoagulable related to her active malignancy. Start Lovenox 40 mg daily. Endocrine: Maintain euglycemia. Lines and tubes: Peripheral IVs and Leslie catheter in place VTE prophylaxis: SCD, Lovenox discontinued due to hematuria. CODE STATUS: Full code Disposition: Patient can be discharged home from the ICU. Admission and Anticipated Discharge Date Admission Date: April 10, 2024 Subjective Patient markedly improved today and strength is improved. She was able to sit up and stand up today with help. She is eager to go home. Weakness in her left arm is markedly improved. Review of Systems Review of Systems: All systems reviewed & are unremarkable except as noted in HPI & below Physical Exam Physical Exam: Constitutional: Patient appears to be of their stated age. Patient is in no apparent distress. Patient is well-developed. Eyes: Pupils are equal round and reactive to light. Conjunctivae are normal. Anicteric sclera. Ears nose, mouth and throat: Mallampati class 2. Normal posterior oropharynx. Uvula is midline. Neck: Trachea is midline. Visual inspection is normal. Respiratory: Clear to auscultation bilaterally. No use of accessory muscles. No significant clubbing noted. Cardiovascular: Regular rate and rhythm. No murmurs. No edema. Gastrointestinal: Normal bowel sounds, soft, nontender and nondistended. No hepatosplenomegaly noted. Musculoskeletal: No cyanosis. Patient is able to move all extremities. Strength is 5 out of 5 in the upper and lower extremities. Skin: No rashes, warm dry and intact. Neurologic: 4 out of of 5 strength in the left upper extremity. 5 out of 5 strength in the right upper extremity. Minimal dysarthria. NIH score of 2 Psychiatric: Alert and oriented x3 with a euthymic affect. Results & Data Results & Data Vital Signs (Past 12 Hours) Vital Signs Temp Pulse Resp BP Pulse Ox O2 Del Method 04/12/24 09:06 76 16 97 04/12/24 09:00 Room Air 04/12/24 08:03 78 23 93 Room Air 04/12/24 08:01 125/62 04/12/24 08:00 75 04/12/24 07:54 89 15 96 04/12/24 07:12 54 L 13 97 04/12/24 07:00 111/51 L 04/12/24 06:57 79 13 95 04/12/24 06:21 55 L 14 96 04/12/24 06:00 135/73 04/12/24 06:00 135/73 04/12/24 05:51 62 16 96 04/12/24 05:33 81 22 95 04/12/24 05:12 52 L 13 98 04/12/24 05:00 137/70 04/12/24 05:00 37 C 137/70 04/12/24 05:00 137/70 04/12/24 04:54 52 L 14 97 04/12/24 04:33 54 L 15 96 04/12/24 04:09 60 15 94 04/12/24 03:45 60 17 96 04/12/24 03:06 53 L 15 93 04/12/24 03:00 100/71 04/12/24 02:42 65 12 95 10/24/24 02:00 110/69 04/12/24 02:00 110/69 04/12/24 02:00 110/69 04/12/24 02:00 59 L 13 95 04/12/24 01:30 60 25 H 92 04/12/24 01:09 62 95 04/12/24 00:33 66 12 93 04/12/24 00:06 62 14 94 04/12/24 00:00 128/76 04/12/24 00:00 128/76 04/12/24 00:00 72 04/11/24 23:36 69 15 95 04/11/24 23:03 77 13 95 04/11/24 23:00 140/77 04/11/24 22:39 66 14 95 04/11/24 22:09 70 14 93 Coding Level of Care Code 41683 SUB INP/OBS CARE 2MIN Diagnoses Acute CVA (cerebrovascular accident) I63.9 Multiple pulmonary nodules determined by computed tomography of lung R91.8 Adenocarcinoma of lung C34.90 Hematuria R31.9
[2024-04-12 11:47] VITALS: O2SAT 94
--- NOTE | 2024-04-12 13:34 | Discharge Summary ---
Discharge Summary Date of Service April 12, 2024 Principal Dx & Hospital Course #1 = Principal Diagnosis (1) TIA (transient ischemic attack): Last known well 10:45am, s/p bronchoscopy Stroke alert called in the ICU, not TNK candidate due to biopsies taken in bronchoscopy Left sided hemiparesis ?neglect, expressive dysphasia all noted at that time CTA head and neck negative MRI brain with and without contrast negative Consult neurology appreciated-likely vasospasm and prolonged TIA-now improving [id number] real weakness residual on exam No need for antiplatelet or high intensity statin as this is not something caused other than vasospasm likely from the procedure and medications. BPs normal Stable for dc to home with outpt PT (2) Hypokalemia: Replaced and resolved (3) Adenocarcinoma of lung: Recurrent based on biopsies from bronchoscopy on day of admission Pulmonology management appreciated Discussed with pt-has Oncology appt next week to discuss Palliative treatments (4) Diabetes mellitus, type 2: Mild, hemoglobin A1c well-controlled at 6.1% Insulin as needed was given here, no meds needed at home Plan VTE Prophylaxis -SCDs Disposition -dc to home Notes For Next Care Provider F/u with Oncology as outpt Medication Changes From Visit None Admission HPI Per Admitting Provider Roxana Hodges is a 78 year old female who presents to the ICU as a direct admission from bronchoscopy due to ST elevations during the procedure and on waking up she is unable to move the left side of her body. Unable to get any significant history from the patient at this time due to expressive dysphasia and waking up from anesthesia. 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 Discharge Exam Constitutional WD/WN, vitals as above Respiratory normal respiratory effort; no cough Auscultation: + diminished lung sounds (Left base); no crackles and no wheezes Cardiovascular RRR, no murmur, no edema Gastrointestinal (Abdomen) normal bowel sounds, soft, nontender, no hepatosplenomegaly Neurologic CN's II-XI intact bilaterally and moves all extremities; no focal motor deficits and not confused Speech / Cognition: normal speech Motor/Sensory: no tremor Psychiatric A+Ox3, euthymic affect Discharge Plan Discharge Items Patient Disposition: Personal Prison Reason For Visit: Stroke Discharge Diagnosis: TIA, cerebral vasospasm Metastatic lung cancer Condition on Discharge: Good Activity: As commented below Bathing: No limitations Driving/Machine Use: Resume when cleared by PCP and PT/OT Weightbearing: Full weightbearing Non-emergency contact: Primary Care Provider, Oncologist and Campground Cleaning Attendant Call non-emergency contact if: you have any medication questions and your symptoms worsen Follow-up/Referrals: Jonn Cole MD [Primary Care Provider] - Diet: Regular Addtl Attending Provider Instructions: Please attend outpatient PT/OT sessions to regain your strength and balance. Follow up with Dr. Cervantes for your lung cancer as we discussed. Risk Factors for Stroke: You can reduce your chances of stroke by working with your medical provider to adopt a healthy lifestyle. Some specific ways to lower your chance of stroke are: * If you are a smoker, now is the time to stop smoking cigarettes * If you are diabetic, improve the control of your blood sugars * Avoid excessive amounts of alcohol * Control high blood pressure * Lose weight if you are overweight * Be sure to lead an active lifestyle * Eat a healthy diet low in salt, cholesterol and fat You should know about other risk factors for stroke that you are unable to control. These include: * Age 55 years or older * Male gender * Certain racial groups: , or / * Family History of Stroke, Mini stroke or Heart Attack * Sickle Cell Disease Follow Up: It is important for you to keep your follow up appointments with your medical provider. Who to Call and When: Medical Emergencies: Call 911 immediately if you experience any of the following warning signs and symptoms of Stroke: * Sudden numbness or weakness of the face, arm or leg, especially on one side of the body * Sudden confusion, trouble speaking or understanding * Sudden trouble seeing in one or both eyes * Sudden trouble walking, dizziness, loss of balance or coordination * Sudden severe headache with no cause Do not delay calling 911 if you experience any warning signs or symptoms of a stroke. Delay in seeking medical attention may affect what treatments can be given to you. It was my pleasure taking care of you! I will keep you in my thoughts and prayers, Niesha Dalton M.D. Pending Studies at Discharge: No Stand-Alone Forms: My [facility] Skilled Items Patient informed of condition?: Yes DNR: No Discharge Level of Care: Other Communicable Disease: No Discharge Prognosis: Improving Lines: None Urinary Catheter: No Medications and DC Order Prescriptions: Continued turmeric 1 tab PO HS multivitamin tablet 1 tab PO QAM metformin 1,000 mg tablet 1,500 mg PO BID cholecalciferol (vitamin D3) [Vitamin D3] 125 mcg (5,000 unit) Tablet 125 mcg PO QAM Patient Comments: dose varies by which bottle she buys Gas-X 62.5 mg Strip 2 strip PO BID PRN (Reason: Abdominal Discomfort) Rx Instructions: after meals and at bedtime cetirizine 10 mg Capsule 10 mg PO DAILY Discharge Orders: Discharge Order (Routine); Ordered 04/12/24 Ordered By: Niesha Dior/Other Patient Handouts: Managing Type 2 Diabetes Admission Data Admit Date/Time: 04/10/24 13:29 Attending Provider: Niesha Dalton Admit Provider: Romario Jaime Primary Care Provider: Jonn Cole Other Providers: Jaren Amaral; Ahsan Keene; Jimmy Umana; Christi Omer; Cassandra Love; Meghann Benjamin; Stef Neri; [facility] Stay Data Consultations 04/10/24 13:29 Consult Marriage Performer Routine 04/10/24 13:47 Consult Neurology Stat Procedures Performed Operation Date: 04/10/24 10:00 Actual Procedures p Robotic Assisted Navigational Bronchoscopy,Transbronchial Needle Aspiration, Transbronchial Needle Biopsy under Fluoroscopy, Bronchial Alveolar Lavage(Not Applicable) - Jaren Amaral MD s Endobronchial Ultrasound, Endobronchial Brushings(Not Applicable) - Jaren Amaral MD Diagnostic Imagining Performed 04/10/24 10:00 [place] bronchoscopy Routine 04/10/24 13:25 CT angio chest PE protocol Urgent 04/10/24 13:47 CT angio neck with con Stat CTA head wo/w [CT angio head wo/w] Stat 04/10/24 15:02 MRI Brain [MR brain wo/w con] Stat ECHO Pending Results Patient Have Any Pending Studies at Discharge: No Discharge Instructions Given to Patient (Per Discharging Provider) Please attend outpatient PT/OT sessions to regain your strength and balance. Follow up with Dr. Cervantes for your lung cancer as we discussed. Risk Factors for Stroke: You can reduce your chances of stroke by working with your medical provider to adopt a healthy lifestyle. Some specific ways to lower your chance of stroke are: * If you are a smoker, now is the time to stop smoking cigarettes * If you are diabetic, improve the control of your blood sugars * Avoid excessive amounts of alcohol * Control high blood pressure * Lose weight if you are overweight * Be sure to lead an active lifestyle * Eat a healthy diet low in salt, cholesterol and fat You should know about other risk factors for stroke that you are unable to control. These include: * Age 55 years or older * Male gender * Certain racial groups: , or / * Family History of Stroke, Mini stroke or Heart Attack * Sickle Cell Disease Follow Up: It is important for you to keep your follow up appointments with your medical provider. Who to Call and When: Medical Emergencies: Call 911 immediately if you experience any of the following warning signs and symptoms of Stroke: * Sudden numbness or weakness of the face, arm or leg, especially on one side of the body * Sudden confusion, trouble speaking or understanding * Sudden trouble seeing in one or both eyes * Sudden trouble walking, dizziness, loss of balance or coordination * Sudden severe headache with no cause Do not delay calling 911 if you experience any warning signs or symptoms of a stroke. Delay in seeking medical attention may affect what treatments can be given to you. It was my pleasure taking care of you! I will keep you in my thoughts and prayers, Niesha Dalton M.D. Total Time Total Time Spent Total Time Spent (In Minutes): 35 min Total Time Includes: Examination of the Patient, Discharge Planning, Medication Reconciliation and Communication With Other Providers (Pulmonology) Coding Level of Care Code 08511 INP/OBS DISCH >30 MIN Diagnoses TIA (transient ischemic attack) G45.9 Hypokalemia E87.6 Adenocarcinoma of lung C34.90 Diabetes mellitus, type 2 E11.9
[2024-04-12 15:02] VITALS: BP 147/77; PULSE 78; RESP 17
--- NOTE | 2024-04-13 05:39 | Electrocardiogram Report ---
Test Reason : Blood Pressure : */* mmHG Vent. Rate : 85 BPM Atrial Rate : 85 BPM P-R Int : 160 ms QRS Dur : 128 ms QT Int : 420 ms P-R-T Axes : 78 -52 81 degrees QTcB Int : 499 ms Normal sinus rhythm Right bundle branch block Left anterior fascicular block Bifascicular block Left ventricular hypertrophy with repolarization abnormality Abnormal ECG When compared with ECG of 28-Apr-2023 09:16, T wave inversion no longer evident in Inferior leads Confirmed by Sonny Pollock ([id number]) on 04/13/2024 5:39:13 AM Referred By: Jaren Amaral Confirmed By: Sonny Pollock
== END 2024-04-12 15:45 | disposition home or self-care (01) | DRG 988 ==
LOC: ASU 08:19 → SUATTDRO 13:29 → 1E 13:29